=== PATIENT | male | born 1945 | race Caucasian/White ===

== ENCOUNTER 2019-03-26 11:00 | Outpatient (RCR) | payer OTHER, MEDICARE, SELFPAY | END 2019-04-06 23:59 | disposition home or self-care (01) | LOC: MPT 11:00 | PROVIDERS: Referring Provider Orthopaedic Surgery Pediatric Orthopaedic Surgery; Visit Provider Orthopaedic Surgery Pediatric Orthopaedic Surgery | DX: M17.12 Unilateral primary osteoarthritis, left knee (principal) | CPT/HCPCS: 97110; 97116; 97140; 97161 ==

== ENCOUNTER 2019-04-09 06:00 | Outpatient (RCR) | payer OTHER, SELFPAY | END 2019-05-05 23:59 | disposition home or self-care (01) | LOC: MPT 06:00 | PROVIDERS: Referring Provider Orthopaedic Surgery Pediatric Orthopaedic Surgery; Visit Provider Orthopaedic Surgery Pediatric Orthopaedic Surgery | DX: M17.12 Unilateral primary osteoarthritis, left knee (principal) | CPT/HCPCS: 97110; 97116; 97140 ==

== ENCOUNTER 2019-09-11 06:00 | Outpatient (RCR) | payer OTHER, SELFPAY | END 2019-10-05 23:59 | disposition home or self-care (01) | LOC: MPT 06:00 | PROVIDERS: Referring Provider Orthopaedic Surgery Pediatric Orthopaedic Surgery; Visit Provider Orthopaedic Surgery Pediatric Orthopaedic Surgery | DX: M17.11 Unilateral primary osteoarthritis, right knee (principal) | CPT/HCPCS: 97110; 97140; 97161; G0283 ==

== ENCOUNTER 2020-03-25 09:12 | Outpatient (CLI) | payer OTHER, SELFPAY ==
--- NOTE | 2020-03-25 09:26 | CT_ITS ---
WS: [id number] CT NECK TECHNIQUE: Contrast-enhanced CT of the neck with coronal and sagittal reformatted images. CLINICAL INFORMATION: PRIMARY TONSIL SQUAMOUS CELL CANCER FOLLOW-UP COMPARISON: CT 4 DLP: 2954.[address] scans at [facility] use at least one of these dose optimization techniques: automat ed exposure control; mA and/or kV adjustment per patient size (includes targeted exams where dose is matched to clinical indication); or iterative reconstruction. FINDINGS: Prior postoperative changes modified left radical neck dissection. Parotid glands are normal. Normal submandibular glands. Tongue base appears normal. Normal parapharyngeal fat. Normal posterior nasopha rynx. No evidence of supraglottic or glottic mass. No cervical lymphadenopathy. Thyroid gland is norm al. Chronic emphysematous changes in the lung apices. Partially visualized intracranial contents are unre markable. Paranasal sinuses and mastoid air cells well aerated. Moderate spondylitic changes cervical spine. Slight anterolisthesis C4 on C5. CT/CT neck w con* [id number] IMPRESSION: 1. Normal salivary glands. 2. No cervical lymphadenopathy. 3. No evidence of supraglottic or glottic mass. 4. Normal posterior nasopharynx and parapharyngeal fat. 5. Normal mastoid air cells and paranasal sinuses.
[2020-03-25] MEDS: iohexol 300 mg/mL 100 mL Btl IV (10:07)
== END 2020-03-25 09:13 | disposition home or self-care (01) ==
LOC: RADWPI 09:16
PROVIDERS: PCP Family Medicine; Visit Provider Family Medicine
DX: C09.1 Malignant neoplasm of tonsillar pillar (anterior) (posterior) (principal)
CPT/HCPCS: 70491; Q9967

== ENCOUNTER 2020-04-08 10:32 | Emergency (ER) | payer OTHER, SELFPAY ==
--- NOTE | 2020-04-08 10:41 | XRR_ITS ---
PROCEDURE INFORMATION: Exam: XR Chest, 1 View Exam date and time: 04/08/2020 10:42 AM Age: 75 years old Clinical indication: Cough and dyspnea and shortness of breath; Type not specified; Patient HX: Chest pain and shortness of breath for 6 months to a year, becoming worse over the last weekend; Additional info: Dyspnea/cough TECHNIQUE: Imaging protocol: XR of the chest Views: 1 view. COMPARISON: No relevant prior studies available. FINDINGS: Lungs: The lungs are somewhat hyperinflated with increased interstitial markings, likely representing COPD. There is reticular opacities at the lung bases, suggestive of fibrosis. Pneumonia should be excluded clinically. Pleural spaces: Unremarkable. No pleural effusion. No pneumothorax. Heart/Mediastinum: Unremarkable. No cardiomegaly. Bones/joints: Degenerative changes of the spine seen. Other findings: . XR/XR chest 1V portable [id number] IMPRESSION: Bilateral lower lobe reticular opacities, which may represent chronic changes or pneumonia in the adequate clinical setting. Clinical correlation is recommended.
[2020-04-08 10:59] VITALS: BP 137/78; PULSE 66; RESP 14; TEMP 36.3; O2SAT 96; BMI 27.9
--- NOTE | 2020-04-08 11:06 | ECG_ITS ---
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1945 Requested By: Herber Sampson Order Number: [id number] Reading MD: NICOLA CRUZ Measurements Intervals [place] Rate: 66 P: 60 OR: 167 QRS: -6 QRSD: 90 T: 74 QT: 409 QTc: 430 Interpretive Statements SINUS RHYTHM WITH SINUS ARRHYTHMIA MINIMAL VOLTAGE CRITERIA FOR LVH, CONSIDER NORMAL VARIANT [MEETS CRITERIA IN ONE OF: R(aVL), S(V1), R(V5), R(V5/V6)+S(V1)] SEPTAL MYOCARDIAL INFARCTION , OF INDETERMINATE AGE [40+ ms Q WAVE IN V1/V2] No previous ECG available for comparison Electronically Signed On 04-08-2020 18:02:22 UPHOLSTERY DEPARTMENT SUPERVISOR by NICOLA CRZU [id number]
[2020-04-08 11:10] VITALS: PULSE 71; RESP 18; O2SAT 96
[2020-04-08 11:37] LABS: Basophils % 0.5 %; Eosinophils # 0.3 10^3/uL (0.0-0.8); Eosinophils % 4.7 %; Hematocrit 38.9 % (42.0-52.0); Hemoglobin 12.7 g/dL (11.7-16.6); Lymphocytes # 0.9 10^3/uL (0.8-4.8); Lymphocytes % 15.7 %; Mean Corpuscular HGB Conc 32.6 g/dL (30.0-36.0); Mean Corpuscular Hemoglobin 32.6 pg (28.0-34.0); Mean Corpuscular Volume 99.7 fL (80-94); Mean Platelet Volume 9.3 fL (7.4-10.4); Monocytes # 0.4 10^3/uL (0.2-0.9); Monocytes % 6.7 %; Neutrophils # 3.96 10^3/uL (1.8-7.7); Neutrophils % 72.2 %; Nucleated Red Blood Cells % 0 %; Platelet Count 240 10^3/cmm (130-400); Red Cell Distribution Width 12.2 % (12.1-15.1); White Blood Count 5.5 10^3/uL (4.0-10.0)
--- NOTE | 2020-04-08 11:39 | PC.PHAR ---
pt states he takes care of his own medications-pt states he is unsure which medications he has taken today-
[2020-04-08 11:57] LABS: Alanine Aminotransferase 11 U/L (0-41); Albumin Level 4.2 g/dL (3.5-5.2); Alkaline Phosphatase 118 IU/L (40-130); Anion Gap 14.5 (5-19); Aspartate Amino Transferase 13 U/L (0-40); Blood Urea Nitrogen 15 mg/dL (8-23); Calcium 9.8 mg/dL (8.5-10.5); Carbon Dioxide 29 mmol/L (22-29); Chloride 98 mmol/L (98-107); Globulin 2.6 g/dL (1.3-4.6); Glucose 118 mg/dL (65-115); Osmolality Calculated 286 mOsm/kg (285-295); Potassium 4.5 mmol/L (3.5-5.1); Sodium 137 mmol/L (136-145); Total Bilirubin 0.8 mg/dL (0.15-1.2); Total Protein 6.8 g/dL (6.6-8.7)
[2020-04-08 12:00] LABS: Troponin(5th) Baseline 65 ng/L (0-15)
--- NOTE | 2020-04-08 12:01 | W.ED.SOB ---
HPI - SOB/Dyspnea General: Chief Complaint: Shortness of Breath/Dyspnea Stated Complaint: SOB x 1 year Time Seen by Provider: 04/08/20 10:41 History of Present Illness: HPI Narrative: 75-year-old male presents to the emergency room with complaint of shortness of breath with activity. This been going on for a year he states with any exertion he'll get short of breath sometimes he will get some chest pain with it usually resolves within 15 to 20 minutes of onset with rest. He has not had any radiation of the pain to the neck back or arm. He has noted is becoming more frequent and a little more intense as well. He has an upcoming stress test scheduled. [facility] and they referred him to the emergency room at the time he is seen he is not having any symptoms. MD elicited complaint: shortness of breath and chest pain Pertinent past history: COPD, diabetes and other (Hypertension hyperlipidemia) Onset (ago): year(s) (1) Context: occurred during exertion Timing: intermittent and progressively worsening Severity: mild Exacerbating factors: exertion Relieving factors: rest Known history of: COPD, diabetes and other (Hypertension hyperlipidemia) Associated symptoms: Reports chest pain and cough; Deny abdominal pain, chest congestion, diaphoresis, dizziness, extremity pain, fever(s), hemoptysis, lightheadedness, myalgias, nausea, orthopnea, palpitations, paresthesias, polydipsia, polyuria, rash, sense of impending doom, syncope or vomiting Treatment prior to arrival: none Review of Systems Const: Denies: fever(s) or diaphoresis ENMT: Denies: throat pain, ear or mastoid pain, nasal discharge or nasal congestion Card: Reports: chest pain; Denies: palpitations, lightheadedness, syncope or orthopnea Resp: Denies: hemoptysis or chest congestion GI: Denies: abdominal pain, nausea or vomiting : Denies: flank pain, dysuria, urinary frequency or urinary urgency Musc: Denies: extremity pain Skin/Breast: Denies: rash or pruritus Neuro: Denies: dizziness Endo: Denies: polyuria or polydipsia Physical Exam Const: COMMON NORMALS: no acute distress GENERAL APPEARANCE: cooperative and comfortable ORIENTATION/CONSCIOUSNESS: Yes awake, Yes oriented to person, Yes oriented to place and Yes oriented to time HENMT: COMMON NORMALS: normocephalic, atraumatic and hearing grossly normal bilaterally HEAD & SCALP: normocephalic and atraumatic Neck/C-Spine: COMMON NORMALS: no JVD Resp: COMMON NORMALS: normal respiratory effort, No retractions, No use of accessory muscles and clear to auscultation bilaterally AUSCULTATION: clear to auscultation bilaterally Cardio: COMMON NORMALS: no JVD, regular rate, regular rhythm and No murmurs present (Cardio) RATE: regular rate RHYTHM: regular rhythm GI: COMMON NORMALS: Soft to palpation and No hepatosplenomegaly present AUSCULTATION: Yes normoactive bowel sounds PALPATION: Yes Soft to palpation, No Tenderness to palpation present (GI), No Guarding due to palpation present (GI) and Yes No hepatosplenomegaly present Extremity: COMMON NORMALS: normal to inspection, capillary refill normal, no clubbing, cyanosis or edema, no calf tenderness and no pedal edema Neuro: SENSORIUM/ORIENTATION: Yes oriented to person, Yes oriented to place and Yes oriented to time Skin: COMMON NORMALS: no rashes or lesions noted GENERAL SKIN EXAM: no rashes or lesions noted Course Vital Signs: Vital signs: Vital Signs Temperature 97.4 F L 04/08/20 10:59 Pulse Rate 84 04/08/20 15:02 Respiratory Rate 18 04/08/20 15:02 Blood Pressure 137/78 04/08/20 10:59 Pulse Oximetry 98 04/08/20 15:02 MDM - SOB/Dyspnea MDM Narrative: Medical decision making narrative: We will decrease his lisinopril to 20 mg daily absent the hydrochlorothiazide. Add Imdur 30 mg once daily start baby aspirin daily and continue his other medications. Can use sublingual nitro as needed if has worsening chest pain not relieved by nitro return to the emergency room. Otherwise keep appointment for cardiac stress testing as scheduled. Lab Data: Labs: Lab Results 04/08/20 04/08/20 04/08/20 Range/Units 11:29 11:29 11:29 WBC 5.5 (4.0-10.0) 10^3/ uL RBC 3.90 L (4.1-5.3) 10^6/u L Hgb 12.7 (11.7-16.6) g/dL Hct 38.9 L (42.0-52.0) % MCV 99.7 H (80-94) fL MCH 32.6 (28.0-34.0) pg MCHC 32.6 (30.0-36.0) g/dL RDW 12.2 (12.1-15.1) % Plt Count 240 (130-400) 10^3/c mm MPV 9.3 (7.4-10.4) fL Neut % (Auto) 72.2 % Lymph % (Auto) 15.7 % [place] % (Auto) 6.7 % Eos % (Auto) 4.7 % Baso % (Auto) 0.5 % Neut # (Auto) 3.96 (1.8-7.7) 10^3/u L Lymph # (Auto) 0.9 (0.8-4.8) 10^3/u L [place] # (Auto) 0.4 (0.2-0.9) 10^3/u L Eos # (Auto) 0.3 (0.0-0.8) 10^3/u L Baso # (Auto) 0.0 (0.0-0.1) 10^3/u L Nucleated RBC % (a uto) 0 % Nucleated RBCs # 0.0 /100WBC Sodium 137 (136-145) mmol/L Potassium 4.5 (3.5-5.1) mmol/L Chloride 98 (98-107) mmol/L Carbon Dioxide 29 (22-29) mmol/L Anion Gap 14.5 (5-19) BUN 15 (8-23) mg/dL Creatinine 0.9 (0.7-1.2) mg/dL GFR Calculation Not Reportable Glucose 118 H (65-115) mg/dL Calculated Osmolal ity 286 (285-295) mOsm/k g Calcium 9.8 (8.5-10.5) mg/dL Total Bilirubin 0.8 (0.15-1.2) mg/dL AST 13 (0-40) U/L ALT 11 (0-41) U/L Alkaline Phosphata se 118 (40-130) IU/L Troponin T Baselin e 65 H (0-15) ng/L Troponin T 120 Min [place] (0-15) ng/L Delta Troponin T (0-10) ABS# Total Protein 6.8 (6.6-8.7) g/dL Albumin 4.2 (3.5-5.2) g/dL Globulin 2.6 (1.3-4.6) g/dL 04/08/20 Range/Units 13:35 WBC (4.0-10.0) 10^3/ uL RBC (4.1-5.3) 10^6/u L Hgb (11.7-16.6) g/dL Hct (42.0-52.0) % MCV (80-94) fL MCH (28.0-34.0) pg MCHC (30.0-36.0) g/dL RDW (12.1-15.1) % Plt Count (130-400) 10^3/c mm MPV (7.4-10.4) fL Neut % (Auto) % Lymph % (Auto) % [place] % (Auto) % Eos % (Auto) % Baso % (Auto) % Neut # (Auto) (1.8-7.7) 10^3/u L Lymph # (Auto) (0.8-4.8) 10^3/u L [place] # (Auto) (0.2-0.9) 10^3/u L Eos # (Auto) (0.0-0.8) 10^3/u L Baso # (Auto) (0.0-0.1) 10^3/u L Nucleated RBC % (a uto) % Nucleated RBCs # /100WBC Sodium (136-145) mmol/L Potassium (3.5-5.1) mmol/L Chloride (98-107) mmol/L Carbon Dioxide (22-29) mmol/L Anion Gap (5-19) BUN (8-23) mg/dL Creatinine (0.7-1.2) mg/dL GFR Calculation Glucose (65-115) mg/dL Calculated Osmolal ity (285-295) mOsm/k g Calcium (8.5-10.5) mg/dL Total Bilirubin (0.15-1.2) mg/dL AST (0-40) U/L ALT (0-41) U/L Alkaline Phosphata se (40-130) IU/L Troponin T Baselin e (0-15) ng/L Troponin T 120 Min [place] 65.11 H (0-15) ng/L Delta Troponin T 0.11 (0-10) ABS# Total Protein (6.6-8.7) g/dL Albumin (3.5-5.2) g/dL Globulin (1.3-4.6) g/dL Discharge Plan Discharge Patient Disposition: Home Clinical Impression: Atypical chest pain Condition: Stable Prescriptions: New isosorbide mononitrate 30 mg tablet extended release 24 hr 30 mg PO DAILY Qty: 30 RF: 0 nitroglycerin 0.4 mg tablet, sublingual 0.4 mg sublingual Q5M PRN (Reason: chest pain) Qty: 30 RF: 0 lisinopril 20 mg tablet 20 mg PO DAILY Qty: 30 RF: 0 aspirin 81 mg tablet,delayed release (DR/EC) 81 mg PO DAILY Qty: 30 RF: 0 Discontinued lisinopril-hydrochlorothiazide 20-25 mg tablet 1 tab PO QAM RF: 0 No Action ipratropium-albuterol 20-100 mcg/actuation mist 1 puff inhalation QID RF: 0 amlodipine 5 mg tablet 5 mg PO DAILY RF: 0 atorvastatin 40 mg tablet 40 mg PO QPM RF: 0 budesonide-formoterol 160-4.5 mcg/actuation HFA aerosol inhaler 2 puff inhalation BID RF: 0 duloxetine 60 mg capsule,delayed release(DR/EC) 60 mg PO DAILY RF: 0 gabapentin 600 mg tablet 600 mg PO BID RF: 0 glipizide 5 mg tablet 5 mg PO BID RF: 0 lidocaine 5 % ointment 1 applic topical BID PRN (Reason: unknown) RF: 0 metformin 1,000 mg tablet 1,000 mg PO BID RF: 0 sertraline 100 mg tablet 100 mg PO QAM RF: 0 Nightime Pain Relief And Sleep 2 tab PO BEDTIME RF: 0 Discharge Orders: Discharge ED (Routine); Ordered 04/08/20 Ordered By: Herber Lino Referrals: Harika Valente MD [Primary Care Provider] - Discharge Diet: Usual diet Discharge Activity: Limit activity as instructed Activity Restrictions/Additional Instructions: Stop lisinopril hydrochlorothiazide start plain lisinopril, add Imdur 30 mg daily. Sublingual nitro as needed. Recommend you start baby aspirin 81 mg daily as well. Sublingual nitro if you have chest pain that does not resolve. Keep appointment with stress test as scheduled. Return if you have chest pain that is not relieved by nitroglycerin pills Coding Level of Care Code ED Truck Trailer Mechanic for Mariaelena Fwnaz Exam Comprehensive
--- NOTE | 2020-04-08 13:06 | ECG_ITS ---
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1945 Requested By: Herber Sampson Order Number: [id number] Reading MD: NICOLA CRUZ Measurements Intervals [place] Rate: 79 P: 59 SD: 169 QRS: -21 QRSD: 93 T: 72 QT: 423 QTc: 487 Interpretive Statements SINUS RHYTHM WITH OCCASIONAL VENTRICULAR PREMATURE COMPLEXES POSSIBLE LEFT ATRIAL ENLARGEMENT [-0.1mV P WAVE IN V1/V2] POSSIBLE LEFT VENTRICULAR HYPERTROPHY [VOLTAGE CRITERIA PLUS LAE OR QRS WIDENING] POSSIBLE SEPTAL MYOCARDIAL INFARCTION , OF INDETERMINATE AGE [30 ms Q WAVE IN V1/V2] Compared to ECG 04/08/2020 11:19:27 Ventricular premature complex(es) now present Sinus arrhythmia no longer present Myocardial infarct finding still present Electronically Signed On 04-08-2020 18:03:43 CRM MARKETING MANAGER by NICOLA CRUZ [id number]
[2020-04-08 14:19] LABS: Troponin 5 2HR 65.11 ng/L (0-15); Troponin 5 2HR Delta 0.11 ABS# (0-10)
[2020-04-08 15:02] VITALS: PULSE 84; RESP 18; O2SAT 98
== END 2020-04-08 15:03 | disposition home or self-care (01) ==
PROVIDERS: Emergency Provider Family Medicine; PCP Family Medicine
DX: R07.89 Other chest pain (principal); Z79.84 Long term (current) use of oral hypoglycemic drugs
CPT/HCPCS: 12345; 36415; 71045; 80053; 84484; 85025; 93005; 99283

== ENCOUNTER 2020-04-25 09:12 | Outpatient (CLI) | payer OTHER, SELFPAY ==
[2020-04-25 09:35] VITALS: BMI 27.2
--- NOTE | 2020-04-25 09:38 | ECG_ITS ---
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 Interpretive Statements NAME OF STUDY: LEXISCAN SESTAMIBI STRESS TEST INDICATION: Chest Pain; Shortness of Breath PROCEDURE: At the baseline, the EKG revealed normal sinus rhythm with a poor R wave progression. Possible old anteroseptal myocardial infarction. The baseline blood pressure was 147/105 mm Hg with a heart rate of 66 beats/min. Lexiscan was infused over a period of 20 seconds. A total of 0.4 milligrams of Lexiscan was infused. The stress phase was continued for a total of 5 minutes. Heart rate at the end of the stress phase was 66 with a blood pressure 151/82. The EKG at the peak infusion revealed no significant changes frequent PVCs were noted in the form of bigeminy, towards the end of the infusion. Sestamibi was injected 20 seconds after the Lexiscan infusion. Blood pressure at the end of the recovery phase was 149/81 with a heart rate of 65 per minute. CONCLUSION: 1. No significant EKG changes with the LexiScan infusion 2. No LexiScan induced chest pain or cardiac arrhythmia 3. Normal blood pressure and heart rate response 4. Sestamibi/sestamibi perfusion scan pending; see separate report. Electronically Signed On 04-25-2020 16:19:25 REAL ESTATE INVESTOR by Shelley Cormier M.D. [id number]
--- NOTE | 2020-04-25 09:38 | NMCV_ITS ---
[facility] [place] perf SPECT r/s* [id number] Nico Saenz Age: 75 Gender: M : 1945 Exam Date: 04/25/2020 09:38 Ordering Phys: Shelley Cormier MD ([email or web address]) Technologist: SHERINE Kirkpatrick Exam Location: [facility] Indications: CHEST PAIN STRESS TEST [facility] IMAGE PROTOCOL Rest/Stress 1 Lexiscan Day Radiopharmaceutical Dose (mCi) Administration Site Administered by Rest: Tc-99m 10.8 IV SHERINE Puente Sestamibi Stress:Tc-99m 32.6 IV SHERINE Puente Sestamibi Rest: 25-Apr-2020 60 Discovery 630 Stress: 25-Apr-2020 30 Discovery 630 0.4mg Lexiscan. Images obtained in supine and prone position. SPECT RESULTS Technical Quality: Excellent Raw Data Analysis: Normal Image Corrections: No attenuation or motion correction applied Summed Stress Score: 5 Summed Rest Score: 3 Summed Difference Score: 2 PERFUSION FINDINGS Small to moderate area of decreased tracer uptake in the basal, mid and apical inferior wall region, with the central area of reversibility in the apical inferior region. FUNCTIONAL RESULTS (calculated via Gated SPECT) Stress Image LV EF (%): 25 Stress EDV (mL):219 TID: 1.09 Stress ESV (mL):164 FUNCTIONAL FINDINGS: Dilated left ventricle with a severe diffuse hypokinesia. IMPRESSIONS 1. Bicarb perfusion may revealing a small to moderate area of persistent decreased uptake in the inferior wall region, with a subtle area of reversibility, suggestive of myocardial scarring with a subtle area of ama- infarction ischemia in the distribution of the right coronary artery. 2. Diminished LV ejection fraction 25%. 3. LV wall motion analysis revealing severe diffuse hypokinesia of the left ventricle. 4. Dilated LV cavity with an end-systolic volume of 164 mL No similar previous studies are available for comparison Dr Shelley Cormier MD [facility] (Electronically Signed) Final Date: 25 April 2020 14:08 S
--- NOTE | 2020-04-25 11:55 | SUR.PREOP ---
Patient reports no pain or discomfort prior to the start of the procedure.
[2020-04-25] MEDS: regadenoson 0.4 Mg/5 ml Syringe IVP (12:00)
[2020-04-25 12:35] VITALS: BP 149/81; PULSE 68
== END 2020-04-25 09:13 | disposition home or self-care (01) ==
LOC: CDL 09:14
PROVIDERS: PCP Family Medicine; Visit Provider Internal Medicine Cardiovascular Disease
DX: R07.9 Chest pain, unspecified (principal); R06.02 Shortness of breath
CPT/HCPCS: 78452; 93017; A9500; J2785

== ENCOUNTER 2020-04-29 12:12 | Outpatient (CLI) | payer OTHER, SELFPAY ==
--- NOTE | 2020-04-29 12:19 | USCV_ITS ---
Nico Saenz Age: 75 Gender: M : 1945 Exam Date: 04/29/2020 12:30 Ordering Phys: Shelley Cormier MD ([email or web address]) Technologist: Evie Jaime Exam Location: [facility] [place] Indication: PRE OP FOR CATH BP: 128 / 72 HR: 80 Rhythm: Sinus Technical Quality: Adequate MEASUREMENTS (Male / Female) Normal Values 2D ECHO LV Diastolic Diameter PLAX 4.3 cm 4.2 - 5.9 / 3.9 - 5.3 cm LV Systolic Diameter PLAX 3.5 cm IVS Diastolic Thickness 1.1 cm 0.6 - 1.0 / 0.6 - 0.9 cm IVS Systolic Thickness 1.5 cm LVPW Diastolic Thickness 1.4 cm 0.6 - 1.0 / 0.6 - 0.9 cm LVPW Systolic Thickness 2.2 cm LVOT Diameter 2.0 cm LV Ejection Fraction 2D Teich 41.4 % LV Ejection Fraction MOD 2C 37.1 % LV Ejection Fraction 2C AL 39.4 % LA Diameter 4.1 cm LA Width 3.3 cm LA Height 5.1 cm RA Width 3.9 cm RA Height 4.8 cm Aorta at Sinotubular Diameter 3.2 cm M-MODE LV Diastolic Diameter MM 5.5 cm 4.2 - 5.9 / 3.9 - 5.3 cm LV Systolic Diameter MM 4.4 cm LV Ejection Fraction MM Teich 39.2 % IVS Diastolic Thickness MM 0.8 cm 0.6 - 1.0 / 0.6 - 0.9 cm IVS Systolic Thickness MM 1.4 cm LVPW Diastolic Thickness MM 1.7 cm 0.6 - 1.0 / 0.6 - 0.9 cm LVPW Systolic Thickness MM 1.4 cm RV Diastolic Diameter MM 1.7 cm Aortic Annulus Diameter 3.0 cm LA Ao Ratio MM 1.4 MV E Point Septal Separation 0.9 cm DOPPLER AV Peak Velocity 121.0 cm/s LVOT Peak Velocity 66.0 cm/s AV Area Cont Eq vti 1.7 cm squared AV Area Cont Eq pk 1.8 cm squared MV Area PHT 3.3 cm squared Mitral E to A Ratio 0.7 MV E' Velocity 30.0 cm/s Mitral E to MV E' Ratio 7.9 Mitral E to LV E' Lateral Ratio 7.3 Mitral E to LV E' Septal Ratio 8.7 TR Peak Velocity 113.5 cm/s TR Peak Gradient 5.2 mmHg TR Mean Velocity 81.9 cm/s TR Mean Gradient 3.2 mmHg TR Velocity Time Integral 26.7 cm TV Peak E Velocity 47.0 cm/s PV Peak Velocity 85.7 cm/s RV Acceleration Time 0.2 s RV Ejection Time 0.3 s RV AcT/ET 0.5 FINDINGS Left Ventricle Normal LV size with diminished ejection fraction of 38%. Diffuse hypokinesis of the left ventricle.Grade I/IV diastolic dysfunction (abnormal relaxation filling pattern), normal to mildly elevated filling pressures. Right Ventricle Possibly of normal size and ejection fraction Right Atrium Mildly increased right atrial size. Left Atrium Mildly increased left atrial size. Mitral Valve Thickened mitral valve. Aortic Valve Thickened aortic valve. Tricuspid Valve Trace tricuspid valve regurgitation. Pulmonic Valve Pulmonic valve not well visualized. Pericardium No pericardial effusion. Aorta Normal aortic annulus size. CONCLUSIONS Normal LV size with diminished ejection fraction of 38%. Diffuse hypokinesis of the left ventricle.Grade I/IV diastolic dysfunction (abnormal relaxation filling pattern), normal to mildly elevated filling pressures. Mild biatrial enlargement Thickened aortic and mitral valves. Trace tricuspid valve regurgitation. There is no pericardial effusion. There are no intracardiac masses. No previous study is available for comparison. Dr Shelley Cormier MD [facility] (Electronically Signed) Final Date: 29 April 2020 19:00 S
== END 2020-04-29 12:13 | disposition home or self-care (01) ==
LOC: RAD 12:13
PROVIDERS: PCP Family Medicine; Visit Provider Internal Medicine Cardiovascular Disease
DX: R07.89 Other chest pain (principal); R01.1 Cardiac murmur, unspecified; I08.3 Combined rheumatic disorders of mitral, aortic and tricuspid valves
CPT/HCPCS: 93306

== ENCOUNTER 2020-05-02 10:18 | Outpatient (CLI) | payer OTHER, SELFPAY ==
[2020-05-02 10:48] LABS: Basophils # 0.1 10^3/uL (0.0-0.1); Basophils % 0.9 %; Eosinophils # 0.3 10^3/uL (0.0-0.8); Hematocrit 39.2 % (42.0-52.0); Hemoglobin 12.8 g/dL (11.7-16.6); Lymphocytes % 17.7 %; Mean Corpuscular HGB Conc 32.7 g/dL (30.0-36.0); Mean Corpuscular Hemoglobin 32.7 pg (28.0-34.0); Mean Platelet Volume 9.3 fL (7.4-10.4); Monocytes # 0.4 10^3/uL (0.2-0.9); Monocytes % 7.4 %; Neutrophils # 3.75 10^3/uL (1.8-7.7); Neutrophils % 67.8 %; Nucleated Red Blood Cells % 0 %; Platelet Count 229 10^3/cmm (130-400); Red Blood Count 3.92 10^6/uL (4.1-5.3); Red Cell Distribution Width 12.6 % (12.1-15.1); White Blood Count 5.5 10^3/uL (4.0-10.0)
[2020-05-02 11:02] LABS: INR 0.91 (0.8-1.2)
[2020-05-02 11:11] LABS: Anion Gap 11.5 (5-19); Blood Urea Nitrogen 12 mg/dL (8-23); Calcium 9.6 mg/dL (8.5-10.5); Carbon Dioxide 30 mmol/L (22-29); Chloride 102 mmol/L (98-107); Glucose 96 mg/dL (65-115); Osmolality Calculated 288 mOsm/kg (285-295); Potassium 4.5 mmol/L (3.5-5.1); Sodium 139 mmol/L (136-145)
== END 2020-05-02 10:19 | disposition home or self-care (01) ==
PROVIDERS: Internal Medicine Cardiovascular Disease; PCP Family Medicine; Visit Provider Internal Medicine
DX: R06.02 Shortness of breath (principal); E11.9 Type 2 diabetes mellitus without complications; R94.39 Abnormal result of other cardiovascular function study
CPT/HCPCS: 36415; 80048; 85025; 85610; 86850; 86900; 87635

== ENCOUNTER 2020-05-09 13:23 | Observation (INO) | payer OTHER, MEDICARE, SELFPAY ==
[2020-05-08 14:59] VITALS: BMI 26.9
[2020-05-09] VITALS (31 sets, daily range): BP systolic 95–175; BP diastolic 58–106; PULSE 60–93; RESP 10–26; TEMP 36.3–36.9; O2SAT 95–98
--- NOTE | 2020-05-09 11:21 | XACV_ITS ---
Ht: 178 cm Wt: 85 kg BSA: 2.07 m2 Gender: Male : 1945 Exam Priority: Routine Procedure(s): Procedure Description: Diagnostic procedure Procedure Description: PCI procedure Procedure Description: Left Heart Catheterization Procedure Description: Left ventriculography Procedure Description: Drug Eluting Coronary Stent Procedure Description: PTCA Diagnostic Cath Status: Elective Diagnostic Findings * The left main is a medium to large caliber vessel with no significant obstructive lesions. * The left anterior descending artery is a medium to large caliber vessel which appears to wrap around the LV apex. The proximal to mid segment of the LAD was found to have 50 to 90% irregular, ulcerated lesion. The distal LAD he was found to have no significant stenotic lesion. The first diagonal branch is a relatively small caliber vessel. Mild disease was noted in the ostium of this artery. * The left circumflex artery is a medium caliber vessel which appears to bifurcate to the mid segment. No significant stenotic lesions were noted. * The right coronary artery is a nondominant, relatively small caliber vessel. Minimal intimal irregularities are noted. No significant stenotic lesions. PCI Status: Urgent PCI Indication: NSTE - ACS Interventional Findings * Proximal Left Anterior Descending Coronary Artery: treated with MDT R MITESH 4.0X22 LEA and MDT JOANN EUPHORA RX [id number] BALLOON. Conclusions 1. 75-year-old white male with history of hypertension, type 2 diabetes, dyslipidemia, presented with complaints of chest pain and shortness of breath. He had an abnormal myocardial perfusion imaging revealing areas of fixed and reversible defects. LV action fraction was around 37 percent by echocardiogram. In order to further evaluate his coronary status, a cardiac catheterization was recommended. Patient underwent left heart catheterization with left and right coronary angiogram and LV angiogram today. The findings are as follows. 2. There is a high-grade irregular ulcerated lesion involving the proximal to mid LAD. The LAD was found to be relatively large caliber vessel, wrapping around the LV apex. Minimal intimal irregularities were noted in the left circumflex artery and the right coronary artery. Right coronary artery appears to be a small to medium caliber nondominant vessel. LV ejection fraction was around 36% with an LVEDP of 15 mmHg. 3. Based on the above findings, it was thought be appropriate to consider PCI of the LAD lesion. I reviewed and discussed the cardiac catheterization data with Dr. Duran. Dr. Duran took over further management of this patient at this point. 4. Proximal Left Anterior Descending Coronary Artery was treated with Drug Eluting Stent and Balloon. Recommendations * Continue current medical management and risk factor modification. * Return to inpatient for close monitoring and routine cath care. * Risk factor modification for secondary prevention. * Statin and aspirin 81mg lifelong, if tolerated. * Continue Plavix 75mg p.o. daily for at least one year. We will assess at the end of one year to determine continuation or not. Diagnostic RX Recommendation: PCI w/o planned CABG Ventriculography Ejection Fraction: 36.0 % LV EDP: 15 mmHg Left Ventriculography Findings: * The LV gram was performed the CHEEMA projection. The LV cavity appears to be mildly dilated. There is severe diffuse hypokinesia of the anterior and apical segment. Overall ejection fraction was around 36%. No filling defects were noted. No severe mitral valve prolapse of mitral regurgitation. Pressures Phase:Rest AO : 143 / 75 ( 103 ) @ 6:36:00 AM 146 / 56 ( 95 ) @ 6:36:00 AM LV : 136 / -1 / @ 6:35:00 AM 135 / -1 / @ 6:35:00 AM 136 / 0 / @ 6:36:00 AM 136 / 0 / @ 6:36:00 AM 136 / 0 / @ 6:36:00 AM Valves Phase:DefaultPhase AV : 0.0 @ 1:08:40 PM 0.0 @ 1:08:40 PM AV Mean Gradient: 0.0 @ 1:08:40 PM Clinical Evaluation EBL: 5mL-10mL Procedural Details Procedure Consent Obtained. Admit Source: Out Patient. Pre-Procedure Time Out. Identified patient by full name and date of as verbalized by the patient/guarantor. Does the consent match the physician's order: Yes. Accurate & Complete Informed Consent: Yes. Inpatient/Outpatient History & Physical on Chart: Yes. If H&P is completed, is and addenduem needed: N/A; If yes, is the addendum complete: N/A. Visualize and Verify Site with Patient/Guarantor: N/A. Relevant Radiology Images available: N/A. Pre-op teaching completed and patient verbalized understanding. The risks, benefits, and alternatives of sedation and/or procedure were discussed by physician. The patient agrees to continue. Procedure started. PERRLA. Strong, equal hand engine pilot bilaterally. Lungs clear x 5 lobes. IV Site on Arrival: 18 gauge in the right anticubital. Pre Procedural Pulses: bilateral dorsalis pedis was 3+. Pre Procedural Pulses: bilateral posterior tibial was 3+. Pre Procedural Pulses: bilateral radial was 3+. Oxygen started at 2liters/min via nasal canula. bilateral groins was prepped with chloroprep then draped in the usual sterile fashion. right radial was prepped with chloroprep then draped in the usual sterile fashion. Baseline sample Acquired. HR: 82 BPM. Physician notified. Physician arrived. Lidocaine 1% infiltrated to the right radial. Arterial access obtained. A 5 moldovan Monty catheter in over wire. Multiple views taken of left coronary artery. Catheter redirected to the RCA. Catheter removed over the exchange wire. A 5 moldovan JR4 catheter in over wire. Multiple views taken of right coronary artery. Dr. Duran notified. Catheter out. A 5 moldovan Angled Pig catheter in over wire. EDP Sample taken: LV 136/-1,16; HR: 74 BPM; SpO2: 97%. Aortogram performed in CHEEMA @ 10 mL/second for a total of 30 mL. EDP Sample taken: LV 136/0,17; HR: 73 BPM; SpO2: 97%. Pullback taken: LV 136/-1,16; AO 143/75(103); Mean: 0mmHg, Peak to Peak: 0mmHg, SEP: 7sec/min; HR: 74 BPM; SpO2: 96%. Catheter out. AP pads applied to patient. [facility] Clinical Fraility Score: 4: Vulnerable. 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 Chest Pain Symptom Assessment: Atypical chest pain. Dr. Duran arrived. Cardiovascular Instability: No,. Dr. Duran scrubbed in to perform intervention. 6 moldovan XB 3.5 guide catheter was inserted over the wire. [place] guidewire was advanced through the guide catheter to lesion in the prox LAD. Inflation Number : 1 A MDT R MITESH 4.0X22 LEA -Lot Number# [id number] exp date: 03-25-2021 was prepped and advanced across the Prox LAD. The stent was deployed at 18 FELY for 0:24 seconds. Stent balloon out over wire. results checked. Inflation number : 2 A MDT NC EUPHORA RX [id number] BALLOON was prepped and advanced across the Prox LAD , then inflated to 20 FELY for 0:18 seconds. Inflation number: 3 The MDT NC EUPHORA RX [id number] BALLOON was reinflated across the Prox LAD, to 24 FELY for 0:20 seconds. Balloon and wire out. results checked. TR band placed. Hemostasis obtained. Post Procedure: Pulses reassessed and unchanged. PERRLA. Strong, equal hand engine pilot bilaterally. No VTE prophylaxis required. A TR Band was successful obtaining hemostatsis at the Right Radial artery insertion site. Medication's Wasted: Heparin = 1000 units. Medication's Wasted: Lidocaine 1% = 18 mL. Medication's Wasted: Nitro = 49.8 mg. Total IV fluids: 200 mL. Contrast type used: Omnipaque 300 mgI/mL, 500 mL bottle. Contrast Material : Omnipaque 236 ml. PCI Indication: abnormal stress test. Post-op diagnosis: abnormal stress test. Complications: none. Estimated blood loss: 5mL-10mL. Procedure completed. Patient transferred by wheelchair to 1st floor. Vital chart was stopped. Access Site Site: Right Radial artery Sheath Size: 6 Fr Hemostasis Method: TR Band Hemostasis Success: Successful Procedure Medications Start: 12:13 PM Stop: 12:13 PM Medication: Versed Amount: 1 mg Route: I.V. Start: 12:13 PM Stop: 12:13 PM Medication: Fentanyl Amount: 50 mcg Route: I.V. Start: 12:22 PM Stop: 12: PM Medication: Fentanyl Amount: 50 mcg Route: I.V. Start: 12:23 PM Stop: 12:23 PM Medication: Verapamil Amount: 5 mg Route: I.A. Start: 12:23 PM Stop: 12:23 PM Medication: Versed Amount: 1 mg Route: I.V. Start: 12:23 PM Stop: 12:23 PM Medication: Nitrogylcerin Amount: 200 mcg Route: I.A. Start: 12:25 PM Stop: 12:25 PM Medication: Versed Amount: 1 mg Route: I.V. Start: 12:26 PM Stop: 12:26 PM Medication: Heparin Amount: 5000 units Route: I.V. Start: 12:29 PM Stop: 12:29 PM Medication: 0.9% Saline Amount: 150 ml Route: I.V. bolus Start: 12:48 PM Stop: 12:48 PM Medication: Versed Amount: 1 mg Route: I.V. Start: 12:55 PM Stop: 12:55 PM Medication: Aggrastat 12.5 mg/250 mL Amount: 43 ml Route: I.V. bolus Start: 12:56 PM Stop: 12:56 PM Medication: Aggrastat 12.5 mg/250 mL Amount: 15.5 ml/hr Route: I.V. sesar Dominguez, the attending physician, have reviewed and verified all procedure medications. 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
[2020-05-09] MEDS: diphenhydrAMINE 50 mg Capsule PO (11:56)
--- NOTE | 2020-05-09 12:13 | W.PM.OPSUD ---
Surgery/Procedure H&P Update DATE OF PROCEDURE: May 09, 2020 DATE H&P PERFORMED: 04/29/20 H&P UPDATE INFORMATION: I have reviewed H&P completed within last 30 days, I have examined patient prior to procedure and No changes to prior documentation PREOP DIAGNOSIS: Cardiomyopathy/abnormal stress test PLANNED PROCEDURE: Operation Date: 05/09/20 12:00 Proposed Procedures p Left Cardiac Catheterization R94.39 [id number](Left) - Shelley Cormier MD PATIENT REASSESSED PRIOR TO SEDATION, WITH NO CHANGE NOTED: Yes PHYSICAL EXAM: alert, oriented x 3, clear to auscultation bilaterally and regular rate & rhythm AIRWAY EVAL/ANESTHESIA PLAN: normal airway, see other exam findings, ASA III, Monitored Anesthesia, Local Anesthesia, Risks, benefits & alternatives of sedation and/or procedure discussed and Patient agrees to continue as planned
--- NOTE | 2020-05-09 16:45 | PC.NURSE ---
spoke with Dr. Duran about brilinta ordered for this evening instructions for it to start 05/10/20 at 0900 due to 180mg brilinta given in director of cath lab today
[2020-05-09 17:20] LABS: Glucose Point of Care 162 mg/dL (70-110)
--- NOTE | 2020-05-09 17:50 | PC.NURSE ---
spoke with Dr. Cormier with concerns of patient reports of SOB and elevated blood pressure instructions recived to give 40mg IVP lasix and amlodipine 5mg po now instructions to call supervisor telephone clerks for further instructions Dr. gerardo carrillo notified of hematoma Dr. perdomo will report to bedside
[2020-05-09] MEDS: FUROsemide 10 mg/mL SDV 4mL 40 MG IVP (18:07)
[2020-05-09] MEDS: gabapentin 300 mg Capsule 600 MG PO (18:07)
[2020-05-09] MEDS: atorvastatin 40 mg Tablet PO (18:07)
[2020-05-09] MEDS: amlodipine 5 mg Tablet PO (18:07)
--- NOTE | 2020-05-09 18:46 | PC.NURSE ---
call from Dr Cormier to check on patients blood pressure instructions to give patients home dose of lisiopril PO 40mg now x 1 and Isosorbide mononitrate 30mg PO
[2020-05-09] MEDS: isosorbide mononitrate ER 30 mg Tablet PO (19:01)
[2020-05-09] MEDS: lisinopril 20 mg Tablet 40 MG PO (19:01)
--- NOTE | 2020-05-09 22:58 | PC.NURSE ---
PT IS RESTING IN BED. AIR WAS REMOVE FROM TR BAND ACCORDING TO PROTOCOL. PRESSURE DRESSING WAS PLACED. HEMATOMA WAS PRESENT DR CRUZ WAS NOTIFIED. HEMATOMA IS RESOLVING WELL. V/S WNL WILL CONTINUE TO MONITOR.
[2020-05-10] VITALS (18 sets, daily range): BP systolic 92–153; BP diastolic 50–79; PULSE 58–88; RESP 12–24; TEMP 36.6–36.7; O2SAT 92–98
--- NOTE | 2020-05-10 05:14 | PC.NURSE ---
PT IS RESTING IN BED. PT DENIES PAIN. PULSE PALPABLE DISTAL OF INCISION SITE. DRESSING IS C/D/I. WILL CONTINUE TO MONITOR.
[2020-05-10 06:08] LABS: Anion Gap 17.7 (5-19); Blood Urea Nitrogen 18 mg/dL (8-23); Calcium 9.5 mg/dL (8.5-10.5); Carbon Dioxide 26 mmol/L (22-29); Chloride 99 mmol/L (98-107); Glucose 139 mg/dL (65-115); Osmolality Calculated 292 mOsm/kg (285-295); Potassium 3.7 mmol/L (3.5-5.1); Sodium 139 mmol/L (136-145)
[2020-05-10 06:44] LABS: Basophils % 0.7 %; Eosinophils # 0.1 10^3/uL (0.0-0.8); Eosinophils % 2.5 %; Hematocrit 45.9 % (42.0-52.0); Hemoglobin 13.9 g/dL (11.7-16.6); Lymphocytes % 17.1 %; Mean Corpuscular HGB Conc 30.3 g/dL (30.0-36.0); Mean Corpuscular Hemoglobin 32.9 pg (28.0-34.0); Mean Corpuscular Volume 108.5 fL (80-94); Mean Platelet Volume 9.8 fL (7.4-10.4); Monocytes # 0.5 10^3/uL (0.2-0.9); Monocytes % 8.1 %; Neutrophils # 3.96 10^3/uL (1.8-7.7); Neutrophils % 71.1 %; Nucleated Red Blood Cells % 0 %; Platelet Count 246 10^3/cmm (130-400); Red Blood Count 4.23 10^6/uL (4.1-5.3); Red Cell Distribution Width 12.8 % (12.1-15.1); White Blood Count 5.6 10^3/uL (4.0-10.0)
[2020-05-10] MEDS: aspirin 81 mg EC Tablet PO (09:01)
[2020-05-10] MEDS: ticagrelor 90 mg Tablet PO (09:01)
[2020-05-10] MEDS: isosorbide mononitrate ER 30 mg Tablet PO (09:02)
[2020-05-10] MEDS: amlodipine 5 mg Tablet PO (09:02)
[2020-05-10] MEDS: duloxetine 60 mg Capsule PO (09:02)
[2020-05-10] MEDS: lisinopril 20 mg Tablet 40 MG PO (09:02)
[2020-05-10] MEDS: gabapentin 300 mg Capsule 600 MG PO (09:02)
--- NOTE | 2020-05-10 11:01 | P.SS_ITS ---
Short Stay Summary Providers Date of Admit/Discharge: 05/10/20 Attending Provider: Shelley Cormier MD Primary Care Provider: Harika Valente MD Chief Complaint: Left Cardiac Catheterization HPI History of Present Illness Nico Saenz is a 75 year old male past medical history significant for hypertension hyperlipidemia diabetes mellitus due to LV dysfunction abnormal stress test underwent stress test found to have proximal mild to moderate tandem lesion distal lesion which was severely stenotic and significant with eccentric plaque's, it was treated with single drug-eluting stent posted by noncompliant balloon. Excellent angiographic result was achieved. Patient tolerated procedure well with mild hematoma in the right hand. Overall right hand looks good no numbness no tingling no motor deficit. He is feeling much better, he is in well compensated state of heart failure. I will discharge him today. I have advised patient to continue clopidogrel without interruption along with aspirin for at least 1 year after that we will decide. Patient has been advised to follow-up with Dr. Cormier as an outpatient. Home Meds/Allergies Home Medications and Allergies Home Medications Medication Instructions Recorded Confirmed Type amlodipine 5 mg tablet 5 mg PO DAILY 04/07/20 05/09/20 History atorvastatin 40 mg tablet 40 mg PO QPM 04/07/20 05/09/20 History budesonide-formoterol HFA 160 2 puff INHALATION BID 04/07/20 05/09/20 History mcg-4.5 mcg/actuation aerosol inhaler duloxetine 60 mg capsule,delayed 60 mg PO DAILY 04/07/20 05/09/20 History release gabapentin 600 mg tablet 600 mg PO BID 04/07/20 05/09/20 History glipizide 5 mg tablet 5 mg PO BID 04/07/20 05/09/20 History ipratropium 20 mcg-albuterol 100 1 puff INHALATION QID 04/07/20 05/09/20 History mcg/actuation mist for inhalation lidocaine 5 % topical ointment 1 applic TOPICAL BID PRN 04/07/20 05/09/20 History metformin 1,000 mg tablet 1,000 mg PO BID 04/07/20 05/09/20 History sertraline 100 mg tablet 100 mg PO QAM 04/07/20 05/09/20 History Nightime Pain Relief And Sleep 2 tab PO BEDTIME 04/08/20 05/09/20 History Allergies Allergy/AdvReac Type Severity Reaction Status Date / Time No Known Allergies Allergy Verified 05/09/20 11:57 PFSH Acute PFSH: Medical History Carcinoma of prostate History of anxiety History of posttraumatic stress disorder (PTSD) Hx of agent [place] exposure Hx of chest pain Hx of emphysema Hx of esophageal reflux Hx of essential hypertension Hx of hyperlipidemia Hx of malignant neoplasm of tonsil Hx of peripheral vascular disease Hx of type 2 diabetes mellitus Hypochondriasis Shortness of breath on exertion Surgical History History of bilateral knee replacement History of prostate surgery Hx of carpal tunnel repair Hx of neck surgery Family History Mother CAD (coronary artery disease) Aortic aneurysm Family/Other Stroke Denies family history of Diabetes Clotting disorder Dementia Chronic kidney disease (CKD) Suicide Anesthesia complication Bleeding disorder Lung disease Cancer Social History Smoking and tobacco status: former smoker Alcohol intake: never Dietary Habits: Current diet type/program: regular Vitals/I&O/Wt Last Vital Signs Temp 97.8 F 05/10/20 10:41 Pulse 85 05/10/20 10:41 Resp 18 05/10/20 10:41 BP 153/79 05/10/20 10:41 Pulse Ox 95 05/10/20 10:41 05/09/20 05/10/20 05/10/20 22:59 06:59 14:59 Intake Total 120 / 120 Output Total 475 / 475 600 / 1075 Balance -355 / -355 -600 / -955 Weight last 48 hrs Weight 188 lb Physical Exam Narrative: EXAM NARRATIVE: GENERAL: Patient is alert, awake and oriented x3. NECK: No jugular vein distension. HEENT: No cyanosis. No icterus. No pallor. HEART: Regular S1 and S2. No murmur, rub or gallop. LUNGS: Clear to auscultate bilaterally. ABDOMEN: Soft, nontender and nondistended. Positive bowel sounds. No guarding, rebound or tenderness. CENTRAL NERVOUS SYSTEM: Grossly nonfocal. EXTREMITIES: Lower extremities without edema bilaterally. 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 Routin e Exams 05/09/20 11:21 Ordered Discharge Plan Discharge Patient Disposition: Home Condition: Stable Prescriptions: New Brilinta 90 mg Tablet 90 mg PO BID Qty: 180 RF: 4 Continued ipratropium-albuterol 20-100 mcg/actuation mist 1 puff inhalation QID RF: 0 amlodipine 5 mg tablet 5 mg PO DAILY RF: 0 atorvastatin 40 mg tablet 40 mg PO QPM RF: 0 budesonide-formoterol 160-4.5 mcg/actuation HFA aerosol inhaler 2 puff inhalation BID RF: 0 duloxetine 60 mg capsule,delayed release(DR/EC) 60 mg PO DAILY RF: 0 gabapentin 600 mg tablet 600 mg PO BID RF: 0 glipizide 5 mg tablet 5 mg PO BID RF: 0 lidocaine 5 % ointment 1 applic topical BID PRN (Reason: unknown) RF: 0 metformin 1,000 mg tablet 1,000 mg PO BID RF: 0 sertraline 100 mg tablet 100 mg PO QAM RF: 0 lisinopril 40 mg tablet 40 mg PO DAILY 90 Days Qty: 90 RF: 3 Nightime Pain Relief And Sleep 2 tab PO BEDTIME RF: 0 isosorbide mononitrate 30 mg tablet extended release 24 hr 30 mg PO DAILY Qty: 30 RF: 0 nitroglycerin 0.4 mg tablet, sublingual 0.4 mg sublingual Q5M PRN (Reason: chest pain) Qty: 30 RF: 0 aspirin 81 mg tablet,delayed release (DR/EC) 81 mg PO DAILY Qty: 30 RF: 0 Discharge Orders: Discharge Order (Routine); Ordered 05/10/20 Ordered By: Isabel Duran Referrals: Shelley Cormier MD [Physician] - ([facility] will contact you to schedule an follow-up with Dr. Cormier in 6 to 8 weeks. If you haven't heard from them by Tuesday afternoon. Please call ) Angélica Kwan FNP [Nurse Practitioner] - ([facility] will contact you to schedule an follow-up with Angélica Kwan in 7 to 10 days. If you haven't heard from them by Tuesday afternoon. Please call ) Discharge Diet: Cardiac and Diabetic Patient Instructions: Ticagrelor (By mouth), Left Heart Catheterization (DC), Coronary Angioplasty (DC), Heart Healthy Diet (DC), Coronary Intravascular Stent Placement (DC), Post Angiogram Home Care Instructions Activity Restrictions/Additional Instructions: Follow-up with Angélica Kwan in 7 days, follow-up with Dr. Cormier in 6 to 8 weeks. 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
--- NOTE | 2020-05-10 13:30 | PC.NURSE ---
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 Discharge packet provided to pt.
== END 2020-05-10 12:33 | disposition home or self-care (01) ==
LOC: CSU 13:38
PROVIDERS: Internal Medicine Cardiovascular Disease; Admitting Provider Internal Medicine Cardiovascular Disease; PCP Family Medicine; Visit Provider Internal Medicine Cardiovascular Disease
DX: I25.10 Atherosclerotic heart disease of native coronary artery without angina pectoris (principal); I10 Essential (primary) hypertension; E11.9 Type 2 diabetes mellitus without complications; E78.5 Hyperlipidemia, unspecified; Z79.84 Long term (current) use of oral hypoglycemic drugs; Z87.891 Personal history of nicotine dependence; Z79.82 Long term (current) use of aspirin
CPT/HCPCS: 36415; 36416; 80048; 82962; 85025; 93452; 94640; C1725; C1769; C1874; C1887; C1894; C9600; G0378; J1644; J1940; J2250; J3010; J3246; J3490; J3535; J7030; Q0163; Q9967

== ENCOUNTER → 2020-05-15 10:49 | Outpatient (BNVA) | payer OTHER, SELFPAY | PROVIDERS: PCP Family Medicine; Visit Provider Nurse Practitioner Family | DX: I25.119 Atherosclerotic heart disease of native coronary artery with unspecified angina pectoris (principal) | CPT/HCPCS: 80048 ==

== ENCOUNTER → 2020-06-19 10:32 | Outpatient (BNVA) | payer OTHER, SELFPAY | PROVIDERS: PCP Family Medicine; Visit Provider Internal Medicine Cardiovascular Disease | DX: R07.89 Other chest pain (principal); R06.02 Shortness of breath; R01.1 Cardiac murmur, unspecified; R07.9 Chest pain, unspecified; I25.118 Atherosclerotic heart disease of native coronary artery with other forms of angina pectoris; I50.33 Acute on chronic diastolic (congestive) heart failure; E11.65 Type 2 diabetes mellitus with hyperglycemia; E78.5 Hyperlipidemia, unspecified; I11.0 Hypertensive heart disease with heart failure | CPT/HCPCS: 80048; 83880 ==

== ENCOUNTER 2020-09-03 07:32 | Outpatient (CLI) | payer OTHER, SELFPAY ==
--- NOTE | 2020-09-03 07:37 | US_ITS ---
WS: [id number] ULTRASOUND ABDOMEN CLINICAL INFORMATION: ABD PAIN COMPARISON: None. FINDINGS: Technically difficult examination due to bowel gas. Liver Size: Normal. Craniocaudal length: 16.1 cm. Echogenicity: Normal. Surface nodularity: None. Mass (size and location): None. Bile ducts Intrahepatic ducts: Normal. Common bile duct diameter: 0.2 cm. Gallbladder Normal. Gallstones: None. Gallbladder sludge: None. Gallbladder wall thickening: None. Pericholecystic fluid: None. Sonographic Delacruz sign: Absent. Pancreas Not well seen Spleen Splenomegaly: None. Craniocaudal length: 10.7 cm. Right kidney: Normal. Hydronephrosis: None. Size: 9.9 cm x 4.0 cm x 5.0 cm Left kidney: Normal. Hydronephrosis: None. Size: 10.5 cm x 4.5 cm x 7.3 cm. Abdominal aorta and IVC Visualized portions are normal. Ascites: None. US/US abdomen complete* [id number] IMPRESSION: Technically difficult examination due to bowel gas. 1. Normal liver 2. Normal gallbladder. No cholelithiasis. 3. Normal common bile duct. 4. No hydronephrosis in either kidney. 5. Normal spleen.
== END 2020-09-03 07:33 | disposition home or self-care (01) ==
LOC: US 07:34
PROVIDERS: PCP Family Medicine; Visit Provider Family Medicine
DX: R10.9 Unspecified abdominal pain (principal)
CPT/HCPCS: 76700

== ENCOUNTER 2020-11-12 13:39 | Outpatient (CLI) | payer OTHER, SELFPAY ==
--- NOTE | 2020-11-12 13:55 | CT_ITS ---
WS: [id number] CT ABDOMEN AND PELVIS NONCONTRAST HISTORY: RIGHT upper quadrant pain near ribs for 6 months. History of prostate cancer. TECHNIQUE: Imaging performed through the abdomen and pelvis. Coronal and sagittal reformats are submi tted. All CT scans at [facility] use at least one of these dose optimization techniques: auto mated exposure control; mA and/or kV adjustment per patient size (includes targeted exams where dose is matched to clinical indication); or iterative reconstruction. DLP: 739.99 mGycm COMPARISON: None available. Lower thorax: Severe emphysema at the lung bases. Interstitial thickening in the periphery is probabl y chronic. Heart size is normal. No hiatal hernia. Liver: Normal size liver. No mass or bile duct dilatation. Gallbladder: Normal gallbladder. Pancreas: Normal size and attenuation. Normal pancreatic duct. No pancreatitis or mass. Spleen: Normal. Adrenal glands: Normal RIGHT adrenal gland. LEFT adrenal gland contains an 18 mm low-attenuation nodu le which is likely an adenoma. Right kidney: Normal size kidney with no mass or hydronephrosis. Left kidney: Normal size kidney with no mass or hydronephrosis. Aorta: Moderate to severe atherosclerosis abdominal aorta. No aneurysm. Atherosclerosis continues int o the common iliac arteries. No free fluid, intraperitoneal air or significant lymphadenopathy. GI tract: Normal appendix. No obstruction. There are a few scattered diverticula in the sigmoid colon . No acute diverticulitis or wall thickening. Abdominal wall: Negative. No hernia. Pelvis: Minimally distended urinary bladder. Prior prostatectomy. No adenopathy or ascites. Inguinal canals are patent containing fat only. Osseous structures: Large anterior bridging osteophytes throughout the lumbar spine. CT/CT abdomen pelvis wo con [id number] IMPRESSION: 1. No acute abdominal or pelvic abnormalities. 2. Mild sigmoid diverticulosis without diverticulitis. 3. Emphysematous and fibrotic changes at the lung bases. 4. Normal appendix. 5. No ascites or adenopathy.
[2020-11-12] MEDS: iohexol 300 mg/mL 50 mL Btl PO (13:57)
== END 2020-11-12 13:40 | disposition home or self-care (01) ==
PROVIDERS: PCP Family Medicine; Visit Provider Family Medicine
DX: R10.11 Right upper quadrant pain (principal); K57.30 Diverticulosis of large intestine without perforation or abscess without bleeding
CPT/HCPCS: 74176; Q9967

== ENCOUNTER 2021-01-31 12:19 | Emergency (ER) | payer OTHER, MEDICARE, SELFPAY ==
[2021-01-31 12:40] VITALS: BP 155/83; PULSE 73; RESP 16; TEMP 37.1; O2SAT 95; BMI 24.3
--- NOTE | 2021-01-31 13:14 | XRR_ITS ---
PROCEDURE INFORMATION: Exam: XR Chest Exam date and time: 01/31/2021 1:14 PM Age: 75 years old Clinical indication: Other: Weakness; Additional info: Feeling unwell, weakness TECHNIQUE: Imaging protocol: XR of the chest. Views: 1 view. Total images: 2 COMPARISON: 1. CR XR chest 1V portable [id number] 04/08/2020 10:[address] abdomen pelvis con [id number] 11/12/2020 2:03:46 PM FINDINGS: Lungs: New subtle ground-glass interstitial lung disease base of the right upper lobe anterior segment potential active interstitial pneumonitis. COPD/chronic bronchitis/emphysema. Senile fibrosis lung bases stable. Pleural spaces: No pleural effusion. No pneumothorax. Heart/Mediastinum: Cardiac structures and configuration with arteriosclerosis. Bones/joints: Unremarkable for age. XR/XR chest 1V portable [id number] IMPRESSION: New subtle ground-glass interstitial lung disease anterior segment right upper lobe potential active interstitial pneumonitis. Radiation Dose CTDIVOL = (mGy): DLP = (mGy-cm)
--- NOTE | 2021-01-31 13:23 | ED_ITS ---
Documented by User: MELISA Raygoza 01/31/21 15:25 HPI - Nausea/Vomiting/Diarrhea General: Chief complaint: Abdominal Pain Stated complaint: N/V & HIVES Time Seen by Provider: 01/31/21 12:56 Source: patient Mode of arrival: ambulatory Limitations: no limitations History of Present Illness: HPI Narrative: Patient is a 75-year-old male who presents to ED today along with his who is also being seen for his complaints of abdominal pain, nausea, vomiting, diarrhea. Patient states he has been sick over the past several days with symptoms. He states he has previously been tested for COVID which was negative. He states his initially began getting symptoms after attending some type of recital/concert and thinks that she got him sick. Patient states he is having anywhere from 3-5 episodes of nausea and vomiting daily. He states when he gets periods of nausea if he can take a drink of water this seems to help. He is not having any episodes of hematemesis. Patient states he is having approximately 5-7 episodes of semi- formed/watery diarrhea daily. He reports stools are non-bloody or dark appearing. He states he gets episodes of diffuse abdominal cramping prior to vomiting or defecating. He is not running fevers. No shortness of breath or cough. No urinary symptoms. MD elicited complaint: nausea, vomiting, diarrhea and abdominal pain Onset (ago): day(s) Description of diarrhea: watery and semi-solid Associated nausea: Yes Associated abdominal pain: Yes Location of pain: Diffuse Relieving factors: other (drink of water helps alleviate nausea) Context: sick contacts ( sick with similar symptoms ) Associated symtoms: Reports nausea; Denies change in vision, chest pain, dizziness, dysuria, fatigue, headache(s), palpitations or syncope Review of Systems Const: Denies: fever(s), chills, body aches or fatigue Eyes: Denies: change in vision or blurry vision ENMT: Denies: throat pain, odynophagia, nasal discharge, nasal congestion, post nasal drip or sinus pain Card: Denies: chest pain, palpitations, irregular heart rhythm, edema, lightheadedness, syncope or pre-syncope Resp: Denies: dyspnea, productive cough or non-productive cough GI: Reports: abdominal pain, nausea, vomiting, diarrhea and GI cramping; Denies: hematemesis, rectal swelling, hematochezia or melena : Denies: flank pain, difficulty urinating, dysuria, urinary frequency or urinary urgency Musc: Denies: neck pain, back pain, extremity pain or joint pain Skin/Breast: Reports: rash Neuro: Denies: headache(s), numbness in extremities, weakness in extremities, sensory changes or dizziness PFSH ED PFSH: Medical History Carcinoma of prostate Coronary artery disease History of anxiety History of posttraumatic stress disorder (PTSD) Hx of agent [place] exposure Hx of chest pain Hx of emphysema Hx of esophageal reflux Hx of essential hypertension Hx of hyperlipidemia Hx of malignant neoplasm of tonsil Hx of peripheral vascular disease Hx of type 2 diabetes mellitus Hypochondriasis Shortness of breath on exertion Systolic congestive heart failure with reduced left ventricular function, NYHA class 3 Surgical History History of bilateral knee replacement History of prostate surgery Hx of carpal tunnel repair Hx of neck surgery Family History Mother CAD (coronary artery disease) Aortic aneurysm Family/Other Stroke Denies family history of Diabetes Clotting disorder Dementia Chronic kidney disease (CKD) Suicide Anesthesia complication Bleeding disorder Lung disease Cancer Social History Smoking and tobacco status: former smoker Alcohol intake: never Physical Exam Const: COMMON NORMALS: no acute distress, average body habitus, patient oriented x3, no limitations, healthy appearing, alert and well nourished GENERAL APPEARANCE: cooperative ORIENTATION/CONSCIOUSNESS: Yes awake, Yes oriented to person, Yes oriented to place and Yes oriented to time HENMT: COMMON NORMALS: normocephalic and atraumatic HEAD & SCALP: normocephalic and atraumatic Resp: COMMON NORMALS: normal respiratory effort and clear to auscultation bilaterally AUSCULTATION: clear to auscultation bilaterally Cardio: COMMON NORMALS: regular rate and regular rhythm RATE: regular rate RHYTHM: regular rhythm GI: COMMON NORMALS: Normal to inspection, nondistended, normoactive bowel sounds present, Soft to palpation, No hepatosplenomegaly present and no masses INSPECTION: Yes normal to inspection PALPATION: Yes Soft to palpation, Yes Tenderness to palpation present (GI) (mild diffusely ) and Yes No hepatosplenomegaly present : COMMON NORMALS: Yes no CVA tenderness BLADDER/KIDNEY EXAM: Yes no CVA tenderness Back/Pelvis: COMMON NORMALS: no CVA tenderness Extremity: COMMON NORMALS: no joint enlargement, no calf tenderness and no pedal edema Neuro: YOBANY COMA SCALE: document GCS findings Yobany coma scale eye opening: Spontaneous Yobany coma scale verbal response: Orientated Yobany coma scale motor response: Obey commands Yobany coma scale total score: 15 COMMON NORMALS: patient oriented x3, CN's II-XII intact bilaterally, moves all extremities, no focal motor deficits and no sensory deficits noted SENSOR IUM/ORIENTATION: Yes alert, Yes oriented to person, Yes oriented to place and Yes oriented to time Skin: COMMON NORMALS: no wounds NARRATIVE SKIN EXAM: a few small erythematous scaly patches to anterior chest Course Vital Signs: Vital signs: Vital Signs Temperature 98.7 F 01/31/21 12:40 Pulse Rate 85 01/31/21 15:03 Respiratory Rate 18 01/31/21 15:03 Blood Pressure 142/84 01/31/21 15:03 Pulse Oximetry 94 01/31/21 15:03 MDM - Nausea/Vomiting/Diarrhea MDM Narrative: Medical decision making narrative: Patient is requesting discharge from the ED as he feels claustrophobic and wants to go outside and get some fresh air . I told patient the remainder of his labs are not completed yet and he verbalizes understanding and would still like to go home. Patient was made aware of his CXR results and his positive COVID results. Patient is unvaccinated for COVID and made statements that he does not necessarily believe the reality of COVID. He is refusing MCA even though I explained to him based on his age and comorbidities he would have a significant risk of progression. He verbalizes understanding and states he still would like to leave without receiving MCA. I was able to get him to agree to oral dexamethasone. Strict return to ED precautions given. Lab Data: Labs: Lab Results 01/31/21 01/31/21 01/31/21 13:38 13:38 13:38 WBC 2.8 10^3/uL L 10^ 3/uL (4.0-10.0) RBC 4.34 10^6/uL 10^6 /uL (4.1-5.3) Hgb 14.3 g/dL g/dL (11.7-16.6) Hct 41.2 % L % (42.0-52.0) MCV 94.9 fl H fl (80-94) MCH 32.9 pg pg (28.0-34.0) MCHC 34.7 g/dL g/dL (30.0-36.0) RDW 11.9 % L % (12.1-15.1) Plt Count 165 10^3/cmm 10^3 /cmm (130-400) MPV 10.2 fL fL (7.4-10.4) Neut % (Auto) 74.5 % % Lymph % (Auto) 16.5 % % [place] % (Auto) 8.6 % % Eos % (Auto) 0.0 % % Baso % (Auto) 0.4 % % Neut # (Auto) 2.07 10^3/uL 10^3 /uL (1.8-7.7) Lymph # (Auto) 0.5 10^3/uL L 10^ 3/uL (0.8-4.8) [place] # (Auto) 0.2 10^3/uL 10^3/ uL (0.2-0.9) Eos # (Auto) 0.0 10^3/uL 10^3/ uL (0.0-0.8) Baso # (Auto) 0.0 10^3/uL 10^3/ uL (0.0-0.1) Nucleated RBC % (a uto) 0 % % Nucleated RBCs # 0.0 /100WBC /100W BC Sodium 133 mmol/L L mmol /L (136-145) Potassium 4.0 mmol/L mmol/L (3.5-5.1) Chloride 92 mmol/L L mmol/ L (98-107) Carbon Dioxide 28 mmol/L mmol/L (22-29) Anion Gap 17.0 (5-19) BUN 17 mg/dL mg/dL (8-23) Creatinine 0.9 mg/dL mg/dL (0.7-1.2) GFR Calculation Not Reportable Glucose 297 mg/dL H mg/dL (65-115) Calculated Osmolal ity 289 mOsm/kg mOsm/ kg (285-295) Calcium 9.4 mg/dL mg/dL (8.5-10.5) Total Bilirubin 0.6 mg/dL mg/dL (0.15-1.2) AST 24 U/L U/L (0-40) ALT 20 U/L U/L (0-41) Alkaline Phosphata se 143 IU/L H IU/L (40-130) Total Protein 7.2 g/dL g/dL (6.6-8.7) Albumin 4.2 g/dL g/dL (3.5-5.2) Globulin 3.0 g/dL g/dL (1.3-4.6) Lipase 35 U/L U/L (13-60) Urine Color Yellow (Yellow) Urine Appearance Clear (CLEAR) Urine pH 5 (5-7) Ur Specific Gravit y 1.015 (1.005-1.030) Urine Protein 1+ H (Negative) Urine Glucose (UA) 4+ H (Normal) Urine Ketones Negative (Negative) Urine Blood 2+ H (Negative) Urine Nitrate Negative (Negative) Urine Bilirubin Neg (Negative) Urine Urobilinogen Norm mg/dL mg/dL (Negative) Ur Leukocyte Jeanette ase Negative (Negative) Urine RBC Rare /hpf /hpf (0-2) Urine WBC 0-4 /hpf H /hpf (0-5) Ur Squamous Epith Cells None /hpf /hpf (0-5) Amorphous Sediment Not Reportable Urine Bacteria 1+ /hpf H /hpf (NONE) SARS-CoV-2 Ag (Rap id) 3 01/31/21 14:05 WBC RBC Hgb Hct MCV MCH MCHC RDW Plt Count MPV Neut % (Auto) Lymph % (Auto) [place] % (Auto) Eos % (Auto) Baso % (Auto) Neut # (Auto) Lymph # (Auto) [place] # (Auto) Eos # (Auto) Baso # (Auto) Nucleated RBC % (a uto) Nucleated RBCs # Sodium Potassium Chloride Carbon Dioxide Anion Gap BUN Creatinine GFR Calculation Glucose Calculated Osmolal ity Calcium Total Bilirubin AST ALT Alkaline Phosphata se Total Protein Albumin Globulin Lipase Urine Color Urine Appearance Urine pH Ur Specific Gravit y Urine Protein Urine Glucose (UA) Urine Ketones Urine Blood Urine Nitrate Urine Bilirubin Urine Urobilinogen Ur Leukocyte Jeanette ase Urine RBC Urine WBC Ur Squamous Epith Cells Amorphous Sediment Urine Bacteria SARS-CoV-2 Ag (Rap id) Positive H (Negative) Imaging Data^: CXR: Radiologist's impression: [address] [id number] ReportSigned Patient: Yulia Saenz #: [id number]: [id number]#:[id number]/Sex: 75 / MADM Date: 01/31/21Loc: ERRoom/Bed:Attending Dr: Ordering Provider/Ordering MD: Adrienne Ruiz Date of Service: 01/31/21 Procedure(s): XR chest 1V portable [id number] Accession Number(s): [id number] Report Number: [id number] PROCEDURE INFORMATION: Exam: XR Chest Exam date and time: 01/31/2021 1:14 PM Age: 75 years old Clinical indication: Other: Weakness; Additional info: Feeling unwell, weakness TECHNIQUE: Imaging protocol: XR of the chest. Views: 1 view. Total images: 2 COMPARISON: 1. CR XR chest 1V portable [id number] 04/08/2020 10:[address] abdomen pelvis wo con [id number] 11/12/2020 2:03:46 PM FINDINGS: Lungs: New subtle ground-glass interstitial lung disease base of the right upper lobe anterior segment potential active interstitial pneumonitis. COPD/chronic bronchitis/emphysema. Senile fibrosis lung bases stable. Pleural spaces: No pleural effusion. No pneumothorax. Heart/Mediastinum: Cardiac structures and configuration with arteriosclerosis. Bones/joints: Unremarkable for age. XR/XR chest 1V portable [id number] IMPRESSION: New subtle ground-glass interstitial lung disease anterior segment right upper lobe potential active interstitial pneumonitis. Radiation Dose CTDIVOL = (mGy): DLP = (mGy-cm) Dictated By:Roslyn New By:Roslyn New Date/Time:01/31/21 [id number]/ 1314 Discharge Plan Discharge Patient Disposition: Home Clinical Impression: COVID-19, Pneumonia due to 2019-nCoV Condition: Stable Prescriptions: New dexamethasone 6 mg tablet 6 mg PO DAILY Qty: 6 RF: 0 No Action ipratropium-albuterol 20-100 mcg/actuation mist 1 puff inhalation QID RF: 0 atorvastatin 40 mg tablet 40 mg PO QPM RF: 0 budesonide-formoterol 160-4.5 mcg/actuation HFA aerosol inhaler 2 puff inhalation BID RF: 0 duloxetine 60 mg capsule,delayed release(DR/EC) 60 mg PO DAILY RF: 0 gabapentin 600 mg tablet 600 mg PO BID RF: 0 glipizide 5 mg tablet 5 mg PO BID RF: 0 metformin 1,000 mg tablet 1,000 mg PO BID RF: 0 sertraline 100 mg tablet 100 mg PO QAM RF: 0 lisinopril 40 mg tablet 40 mg PO DAILY 90 Days Qty: 90 RF: 3 amlodipine 10 mg tablet 10 mg PO DAILY 90 Days Qty: 90 RF: 3 furosemide [Lasix] 40 mg tablet 40 mg PO DAILY Qty: 90 RF: 2 clopidogrel 75 mg tablet 75 mg PO DAILY Qty: 90 RF: 3 potassium chloride 20 mEq tablet extended release 20 meq PO DAILY Qty: 30 RF: 0 Nightime Pain Relief And Sleep 2 tab PO BEDTIME RF: 0 isosorbide mononitrate 30 mg tablet extended release 24 hr 30 mg PO DAILY Qty: 30 RF: 0 nitroglycerin 0.4 mg tablet, sublingual 0.4 mg sublingual Q5M PRN (Reason: chest pain) Qty: 30 RF: 0 aspirin 81 mg tablet,delayed release (DR/EC) 81 mg PO DAILY Qty: 30 RF: 0 Discharge Orders: Discharge ED (Routine); Ordered 01/31/21 Ordered By: Adrienne Ruiz Referrals: Harika Valente MD [Primary Care Provider] - Patient Instructions: COVID-19 (Coronavirus Disease 2019) (ED), How to Recover from COVID-19 at Home (ED) Activity Restrictions/Additional Instructions: As we discussed you are wanting to be discharged from the ED prior to all of your labs coming back. You have been informed that you did test positive for COVID. I have recommended monoclonal antibody infusion however you have refused this. You are agreeable to oral dexamethasone therefore I have written you a prescription for this. You need to quarantine for a full 10 days starting at symptom onset and quarantine will not be lifted until you are fever free without medications for 24 hours and symptoms are improving. You need to return to the emergency department immediately for any worsening symptoms, severe shortness of breath, difficulty breathing, chest pain, uncontrollable fevers, or any other concerns you may have. I hope you begin to feel better soon. Coding Level of Care Code ED [employer] for [employer]g Fwd Exam Comprehensive Documented by User: Herber Lino DO 01/31/21 15:26 HPI - Nausea/Vomiting/Diarrhea General: Chief complaint: Abdominal Pain Stated complaint: N/V & HIVES Time Seen by Provider: 01/31/21 12:56 PFSH ED PFSH: Medical History Carcinoma of prostate Coronary artery disease History of anxiety History of posttraumatic stress disorder (PTSD) Hx of agent [place] exposure Hx of chest pain Hx of emphysema Hx of esophageal reflux Hx of essential hypertension Hx of hyperlipidemia Hx of malignant neoplasm of tonsil Hx of peripheral vascular disease Hx of type 2 diabetes mellitus Hypochondriasis Shortness of breath on exertion Systolic congestive heart failure with reduced left ventricular function, NYHA class 3 Surgical History History of bilateral knee replacement History of prostate surgery Hx of carpal tunnel repair Hx of neck surgery Family History Mother CAD (coronary artery disease) Aortic aneurysm Family/Other Stroke Denies family history of Diabetes Clotting disorder Dementia Chronic kidney disease (CKD) Suicide Anesthesia complication Bleeding disorder Lung disease Cancer Social History Smoking and tobacco status: former smoker Alcohol intake: never Course Vital Signs: Vital signs: Vital Signs Temperature 98.7 F 01/31/21 12:40 Pulse Rate 85 01/31/21 15:03 Respiratory Rate 18 01/31/21 15:03 Blood Pressure 142/84 01/31/21 15:03 Pulse Oximetry 94 01/31/21 15:03 MDM - Nausea/Vomiting/Diarrhea MDM Narrative: Medical decision making narrative: Chart reviewed and patient discussed with midlevel. Agree with assessment and plan. Lab Data: Labs: Lab Results 01/31/21 01/31/21 01/31/21 13:38 13:38 13:38 WBC 2.8 10^3/uL L 10^ 3/uL (4.0-10.0) RBC 4.34 10^6/uL 10^6 /uL (4.1-5.3) Hgb 14.3 g/dL g/dL (11.7-16.6) Hct 41.2 % L % (42.0-52.0) MCV 94.9 fl H fl (80-94) MCH 32.9 pg pg (28.0-34.0) MCHC 34.7 g/dL g/dL (30.0-36.0) RDW 11.9 % L % (12.1-15.1) Plt Count 165 10^3/cmm 10^3 /cmm (130-400) MPV 10.2 fL fL (7.4-10.4) Neut % (Auto) 74.5 % % Lymph % (Auto) 16.5 % % [place] % (Auto) 8.6 % % Eos % (Auto) 0.0 % % Baso % (Auto) 0.4 % % Neut # (Auto) 2.07 10^3/uL 10^3 /uL (1.8-7.7) Lymph # (Auto) 0.5 10^3/uL L 10^ 3/uL (0.8-4.8) [place] # (Auto) 0.2 10^3/uL 10^3/ uL (0.2-0.9) Eos # (Auto) 0.0 10^3/uL 10^3/ uL (0.0-0.8) Baso # (Auto) 0.0 10^3/uL 10^3/ uL (0.0-0.1) Nucleated RBC % (a uto) 0 % % Nucleated RBCs # 0.0 /100WBC /100W BC Sodium 133 mmol/L L mmol /L (136-145) Potassium 4.0 mmol/L mmol/L (3.5-5.1) Chloride 92 mmol/L L mmol/ L (98-107) Carbon Dioxide 28 mmol/L mmol/L (22-29) Anion Gap 17.0 (5-19) BUN 17 mg/dL mg/dL (8-23) Creatinine 0.9 mg/dL mg/dL (0.7-1.2) GFR Calculation Not Reportable Glucose 297 mg/dL H mg/dL (65-115) Calculated Osmolal ity 289 mOsm/kg mOsm/ kg (285-295) Calcium 9.4 mg/dL mg/dL (8.5-10.5) Total Bilirubin 0.6 mg/dL mg/dL (0.15-1.2) AST 24 U/L U/L (0-40) ALT 20 U/L U/L (0-41) Alkaline Phosphata se 143 IU/L H IU/L (40-130) Total Protein 7.2 g/dL g/dL (6.6-8.7) Albumin 4.2 g/dL g/dL (3.5-5.2) Globulin 3.0 g/dL g/dL (1.3-4.6) Lipase 35 U/L U/L (13-60) Urine Color Yellow (Yellow) Urine Appearance Clear (CLEAR) Urine pH 5 (5-7) Ur Specific Gravit y 1.015 (1.005-1.030) Urine Protein 1+ H (Negative) Urine Glucose (UA) 4+ H (Normal) Urine Ketones Negative (Negative) Urine Blood 2+ H (Negative) Urine Nitrate Negative (Negative) Urine Bilirubin Neg (Negative) Urine Urobilinogen Norm mg/dL mg/dL (Negative) Ur Leukocyte Jeanette ase Negative (Negative) Urine RBC Rare /hpf /hpf (0-2) Urine WBC 0-4 /hpf H /hpf (0-5) Ur Squamous Epith Cells None /hpf /hpf (0-5) Amorphous Sediment Not Reportable Urine Bacteria 1+ /hpf H /hpf (NONE) SARS-CoV-2 Ag (Rap id) 01/31/21 14:05 WBC RBC Hgb Hct MCV MCH MCHC RDW Plt Count MPV Neut % (Auto) Lymph % (Auto) [place] % (Auto) Eos % (Auto) Baso % (Auto) Neut # (Auto) Lymph # (Auto) [place] # (Auto) Eos # (Auto) Baso # (Auto) Nucleated RBC % (a uto) Nucleated RBCs # Sodium Potassium Chloride Carbon Dioxide Anion Gap BUN Creatinine GFR Calculation Glucose Calculated Osmolal ity Calcium Total Bilirubin AST ALT Alkaline Phosphata se Total Protein Albumin Globulin Lipase Urine Color Urine Appearance Urine pH Ur Specific Gravit y Urine Protein Urine Glucose (UA) Urine Ketones Urine Blood Urine Nitrate Urine Bilirubin Urine Urobilinogen Ur Leukocyte Jeanette ase Urine RBC Urine WBC Ur Squamous Epith Cells Amorphous Sediment Urine Bacteria SARS-CoV-2 Ag (Rap id) Positive H (Negative) Discharge Plan Discharge Patient Disposition: Home Clinical Impression: COVID-19, Pneumonia due to 2019-nCoV Condition: Stable Prescriptions: New dexamethasone 6 mg tablet 6 mg PO DAILY Qty: 6 RF: 0 No Action ipratropium-albuterol 20-100 mcg/actuation mist 1 puff inhalation QID RF: 0 atorvastatin 40 mg tablet 40 mg PO QPM RF: 0 budesonide-formoterol 160-4.5 mcg/actuation HFA aerosol inhaler 2 puff inhalation BID RF: 0 duloxetine 60 mg capsule,delayed release(DR/EC) 60 mg PO DAILY RF: 0 gabapentin 600 mg tablet 600 mg PO BID RF: 0 glipizide 5 mg tablet 5 mg PO BID RF: 0 metformin 1,000 mg tablet 1,000 mg PO BID RF: 0 sertraline 100 mg tablet 100 mg PO QAM RF: 0 lisinopril 40 mg tablet 40 mg PO DAILY 90 Days Qty: 90 RF: 3 amlodipine 10 mg tablet 10 mg PO DAILY 90 Days Qty: 90 RF: 3 furosemide [Lasix] 40 mg tablet 40 mg PO DAILY Qty: 90 RF: 2 clopidogrel 75 mg tablet 75 mg PO DAILY Qty: 90 RF: 3 potassium chloride 20 mEq tablet extended release 20 meq PO DAILY Qty: 30 RF: 0 Nightime Pain Relief And Sleep 2 tab PO BEDTIME RF: 0 isosorbide mononitrate 30 mg tablet extended release 24 hr 30 mg PO DAILY Qty: 30 RF: 0 nitroglycerin 0.4 mg tablet, sublingual 0.4 mg sublingual Q5M PRN (Reason: chest pain) Qty: 30 RF: 0 aspirin 81 mg tablet,delayed release (DR/EC) 81 mg PO DAILY Qty: 30 RF: 0 Discharge Orders: Discharge ED (Routine); Ordered 01/31/21 Ordered By: Adrienne Ruiz Referrals: Harika Valente MD [Primary Care Provider] - Patient Instructions: COVID-19 (Coronavirus Disease 2019) (ED), How to Recover from COVID-19 at Home (ED) Activity Restrictions/Additional Instructions: As we discussed you are wanting to be discharged from the ED prior to all of your labs coming back. You have been informed that you did test positive for COVID. I have recommended monoclonal antibody infusion however you have refused this. You are agreeable to oral dexamethasone therefore I have written you a prescription for this. You need to quarantine for a full 10 days starting at symptom onset and quarantine will not be lifted until you are fever free without medications for 24 hours and symptoms are improving. You need to return to the emergency department immediately for any worsening symptoms, severe shortness of breath, difficulty breathing, chest pain, uncontrollable fevers, or any other concerns you may have. I hope you begin to feel better soon. Coding Level of Care Code ED [employer] for Mariaelena Fwnaz Exam Comprehensive
[2021-01-31] MEDS: sodium chloride 0.9% 1,000 ML 999 ML IV (13:41)
[2021-01-31 13:50] VITALS: BP 143/84; PULSE 63; RESP 18; O2SAT 96
[2021-01-31 13:56] LABS: Basophils % 0.4 %; Hematocrit 41.2 % (42.0-52.0); Hemoglobin 14.3 g/dL (11.7-16.6); Lymphocytes # 0.5 10^3/uL (0.8-4.8); Lymphocytes % 16.5 %; Mean Corpuscular HGB Conc 34.7 g/dL (30.0-36.0); Mean Corpuscular Hemoglobin 32.9 pg (28.0-34.0); Mean Corpuscular Volume 94.9 fl (80-94); Mean Platelet Volume 10.2 fL (7.4-10.4); Monocytes # 0.2 10^3/uL (0.2-0.9); Monocytes % 8.6 %; Neutrophils # 2.07 10^3/uL (1.8-7.7); Neutrophils % 74.5 %; Nucleated Red Blood Cells % 0 %; Platelet Count 165 10^3/cmm (130-400); Red Blood Count 4.34 10^6/uL (4.1-5.3); Red Cell Distribution Width 11.9 % (12.1-15.1); White Blood Count 2.8 10^3/uL (4.0-10.0)
[2021-01-31 14:25] LABS: Add Urine Culture? No; Add Urine Microscopic? YES; Bacteria Urine 1+ /hpf; Bilirubin Urine Neg (Negative); Blood Urine 2+ (Negative); Glucose Urine UA 4+ (Normal); Ketones Urine Negative (Negative); Leukocyte Esterase Urine Negative (Negative); Nitrate Urine Negative (Negative); Protein Urine 1+ (Negative); RBC Urine RARE /hpf (0-2); Specific Gravity, Urine 1.015 (1.005-1.030); Urine Appearance Clear (CLEAR); Urine Color Yellow (Yellow); Urobilinogen Urine Norm (Negative); WBC Urine 0-4 /hpf (0-5); pH Urine 5 (5-7)
[2021-01-31 14:38] LABS: SARS Covid-2 Antigen Positive (Negative)
[2021-01-31 14:50] LABS: Alanine Aminotransferase 20 U/L (0-41); Albumin Level 4.2 g/dL (3.5-5.2); Alkaline Phosphatase 143 IU/L (40-130); Aspartate Amino Transferase 24 U/L (0-40); Blood Urea Nitrogen 17 mg/dL (8-23); Calcium 9.4 mg/dL (8.5-10.5); Carbon Dioxide 28 mmol/L (22-29); Chloride 92 mmol/L (98-107); Glucose 297 mg/dL (65-115); Lipase 35 U/L (13-60); Osmolality Calculated 289 mOsm/kg (285-295); Sodium 133 mmol/L (136-145); Total Bilirubin 0.6 mg/dL (0.15-1.2); Total Protein 7.2 g/dL (6.6-8.7)
[2021-01-31 15:03] VITALS: BP 142/84; PULSE 85; RESP 18; O2SAT 94
== END 2021-01-31 15:04 | disposition home or self-care (01) ==
PROVIDERS: Emergency Provider Physician Assistant; PCP Family Medicine
DX: U07.1 COVID-19 (principal); J12.82 Pneumonia due to coronavirus disease 2019; Z79.84 Long term (current) use of oral hypoglycemic drugs; Z79.02 Long term (current) use of antithrombotics/antiplatelets; Z79.82 Long term (current) use of aspirin; I25.10 Atherosclerotic heart disease of native coronary artery without angina pectoris; J43.9 Emphysema, unspecified; E78.5 Hyperlipidemia, unspecified; Z85.89 Personal history of malignant neoplasm of other organs and systems; Z85.46 Personal history of malignant neoplasm of prostate; E11.9 Type 2 diabetes mellitus without complications; I11.0 Hypertensive heart disease with heart failure; I50.20 Unspecified systolic (congestive) heart failure; Z87.891 Personal history of nicotine dependence
CPT/HCPCS: 71045; 80053; 81001; 83690; 85025; 87426; 96360; 99283; J7030

== ENCOUNTER 2021-04-02 14:32 | Outpatient (CLI) | payer OTHER, SELFPAY ==
--- NOTE | 2021-04-03 11:47 | ONC CON_ITS ---
Dr. Lara New Patient Note Patient: Nico Saenz Unit #: [id number]: 1945 Dicatated By: Diana Lara M.D.Date of Visit: Apr 02, 2021 Onc MED New Patient/Consult Referring Physician: Harika Valente History of Present Illness: Mr. 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, underwent panendoscopy to confirm the primary which was negative so underwent left radical neck dissection/bilateral tonsillectomy on March 30, 2011 and final pathology report confirmed 1 out of 5 lymph node positive for metastatic squamous cell carcinoma with extranodal extension and the primary was unknown so pTx, pN1 M0, patient was offered combined chemoradiation with cisplatin, as per medical record patient declined chemotherapy but agreed for radiation therapy alone and because of related side effects on July 21, 2011, patient quit taking radiation therapy AGAINST MEDICAL ADVICE so he did not even complete recommended adjuvant radiation therapy. As per patient he was followed in ENT clinic at [facility] in [place] and in 2014, he underwent ENT evaluation and scans, and he was declared cancer free and no more follow-up were planned. Patient said he was also having his follow-up PSA done on yearly basis and showed no recurrence of prostate cancer and now he is not considering getting any more PSAs. As per patient his PMD asked him to follow-up with oncology regarding history of prostate cancer and head and neck cancer. But patient has no new symptoms except dryness of mouth and off and on dysphagia. No left neck mass, no dysuria or hematuria, no new bony pains and for the last week or 2, he has noticed some discomfort/fullness in his right breast under the nipple area, no nipple discharge. No trauma to right chest, no insect bite. No overlying skin changes., His appetite is good his weight has been stable. Denies any fever chills Past Medical History: Mr. Princes medical history consists of abdominal hernia, anxiety, arthropathy, carpal tunnel syndrome, diabetic neuropathy, emphysema, gastroesophageal reflux disease, heart disease, hyperlipidemia, hypertension, peripheral vascular disease, post traumatic stress disorder, type II diabetes, Covid 19 in 2019, and history of prostate cancer in 2007. Past Surgical History: There is no documented surgical history. Medications: Aspirin 1 Tablet (of 81 mg) Tablet, enteric coated Oral daily, Gabapentin 1 Tablet (of 600 mg) Oral b.i.d., glipiZIDE 1 Tablet (of 5 mg) Oral ac (bid), Glucosamine Tablet Oral b.i.d., hydrOXYzine HCl 1 Tablet (of 10 mg) Oral t.i.d., metFORMIN HCl 1 Tablet (of 1000 mg) Oral b.i.d., Naprosyn 1 Tablet (of 500 mg) Oral b.i.d., raNITIdine HCl 1 Tablet (of 150 mg) Oral daily, Sertraline HCl 1 Tablet (of 100 mg) Oral daily, Zestoretic 1 Tablet (of 20-25 mg) Oral daily Allergies: No Known Allergies. Social History: Mr. Saenz is . Mr. Saenz no longer smokes. He drinks occasionally. Quit smoking in 2002, Rare alcohol use. Family History: Mr. Saenz's mother at age 88. Mr. Saenz's father is : motor vehicle accident. Review Of Symptoms: Review of Systems is not available for this patient. Vital Signs: Performed on Apr 02, 2021 16:46: 0, 7, 25.68, 1.99 sq.m, 70 in, 95 % (LOW), 66 /min, 18 /min, 183/98 mm(hg) (HIGH), 97.9 F (LOW), and 179.0 lbs (HIGH). Performance Status: 0 - Fully active, able to carry on all predisease activities without restrictions. (ECOG) Physical Examination: ENMT - No mouth sores, no thrush, no jaundice, status post left radical neck dissection, Respiratory - Lungs are clear to auscultation, Cardiovascular - Regular rate and rhythm of heart , Abdomen - Soft, bowel sounds present, Extremities - No visible edema, Right breast exam shows mild puffiness in subareolar area no definite mass, no nipple discharge, no overlying skin changes. , No right axillary lymphadenopathy Lab/Imaging: Most recent lab results are not available for this patient. 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 So final stage was pTX, pN1, M0, patient was offered combined chemoradiation with cisplatin but patient declined chemotherapy and agreed for adjuvant radiation alone, due to related side effects, patient abandoned his treatment AGAINST MEDICAL ADVICE.As per patient he was followed in ENT clinic on regular basis, in 2014 based on ENT evaluation and scans he was declared cancer free, since then patient has normal follow-up History of prostate cancer, as per medical record it was in situ prostate cancer, underwent robotic prostatectomy in 2006, as per patient he was followed with PSA which remained normal Right breast fullness/discomfort, etiology unclear Plan: Discussed with patient regarding his disease status and recommendations, as far as prostate cancer is concerned, as per medical record he was in situ and for which he underwent robotic prostatectomy in 2006, as per patient his follow-up PSA remained within normal range and now he has decided not to consider any more PSA and with history of in situ prostate cancer, status post prostatectomy, risk of recurrence is very unlikely. As per his head and neck cancer is concerned, patient underwent left radical neck dissection for squamous cell cancer of unknown primary and he did not complete his recommended combined chemoradiation not only that, he did not even complete his recommended adjuvant radiation therapy, so he was high risk for recurrence and also risk of second primary in the lung. Patient recently underwent CT scan of chest abdomen which shows no evidence of disease. As far as head and neck cancer is concern, there is no evidence of recurrence since 2011, although patient did not complete recommended adjuvant therapy, so is less likely he will have recurrence but cannot be entirely ruled out but other concern is second primary in the lung and patient has history of smoking, in that case it would be appropriate to consider low-dose CT scan of chest on a yearly basis, we will recommend referral to pulmonology for evaluation for chronic lung disease. As far as right breast fullness/tenderness is concerned, no definite mass palpable but patient has discomfort, no nipple discharge, we will refer him to surgery for evaluation. We will also refer him to ENT for evaluation for dysphagia and dry mouth which could be due to radiation therapy and left radical neck dissection related changes. Patient will return to clinic after surgical/ENT evaluation Signed By: Diana Lara M.D. <<Signature on File>>
== END 2021-04-02 14:33 | disposition home or self-care (01) ==
PROVIDERS: PCP Family Medicine; Visit Provider Internal Medicine Hematology & Oncology
DX: Z08 Encounter for follow-up examination after completed treatment for malignant neoplasm (principal); Z85.89 Personal history of malignant neoplasm of other organs and systems; Z85.46 Personal history of malignant neoplasm of prostate; N64.59 Other signs and symptoms in breast; R13.10 Dysphagia, unspecified; Z79.899 Other long term (current) drug therapy; Z79.82 Long term (current) use of aspirin
CPT/HCPCS: 99205

== ENCOUNTER 2021-05-15 10:50 | Outpatient (CLI) | payer OTHER, SELFPAY ==
--- NOTE | 2021-05-15 10:54 | MM_ITS ---
WS: [id number] BILATERAL 3D TOMOSYNTHESIS DIGITAL DIAGNOSTIC MAMMOGRAPHY WITH CAD CLINICAL INFORMATION: N63.0 - Unspecified lump in unspecified breast. RIGHT breast pain and soreness TECHNIQUE: Bilateral CC, MLO, and ML views. FINDINGS: Scattered fibroglandular densities bilaterally. Palpable marker RIGHT breast at the 11:00 position ne ar the areola. No underlying suspicious mammographic abnormality. Ultrasound is pending. LEFT breast is unremarkable. ULTRASOUND BREAST BILATERAL TECHNIQUE: Ultrasound right breast focused area of concern. LEFT breast for comparison CLINICAL INFORMATION: N63.0 - Unspecified lump in unspecified breast FINDINGS: Ultrasound bilateral breasts. Ultrasound RIGHT breast at the areola 11:00 position. Normal underlying parenchymal tissue. No suspicious cystic or solid abnormalities. No suspicious lesions to target for biopsy. Comparison LEFT breast areola is normal. MM/[place] [id number] IMPRESSION: BI-RADS: 2-Benign FOLLOW UP: See Report
== END 2021-05-15 10:51 | disposition home or self-care (01) ==
LOC: RADSHAW 10:51
PROVIDERS: PCP Family Medicine; Visit Provider Surgery
DX: N63.11 Unspecified lump in the right breast, upper outer quadrant (principal)
CPT/HCPCS: 76642; 77062

== ENCOUNTER → 2021-09-08 14:19 | Outpatient (BNVA) | payer OTHER, SELFPAY | PROVIDERS: PCP Family Medicine; Visit Provider Internal Medicine Cardiovascular Disease | DX: I11.0 Hypertensive heart disease with heart failure (principal); I50.33 Acute on chronic diastolic (congestive) heart failure; I25.118 Atherosclerotic heart disease of native coronary artery with other forms of angina pectoris; E78.5 Hyperlipidemia, unspecified; E11.65 Type 2 diabetes mellitus with hyperglycemia; Z87.891 Personal history of nicotine dependence; Z79.84 Long term (current) use of oral hypoglycemic drugs | CPT/HCPCS: 80048; 83880; 99214 ==

== ENCOUNTER 2022-01-06 12:06 | Outpatient (CLI) | payer OTHER, SELFPAY ==
--- NOTE | 2022-01-06 12:45 | USCV_ITS ---
Nico Saenz Age: 76 Gender: M : 1945 Exam Date: 01/06/2022 12:27 Ordering Phys: Shelley Cormier MD ([email or web address]) Technologist: TARA [place]am [place] [facility] [place]: CARDIOMYOPATHY BP: 167 / 78 HR: 66 Rhythm: Sinus Technical Quality: Adequate MEASUREMENTS (Male / Female) Normal Values 2D ECHO LVOT Diameter 2.0 cm LV Ejection Fraction MOD 2C 68.6 % LV Ejection Fraction 2C AL 70.5 % LA Diameter 3.2 cm LA Width 3.4 cm LA Height 5.5 cm RA Width 3.5 cm RA Height 4.8 cm Aorta at Sinotubular Diameter 2.5 cm IVC Diameter 1.3 cm M-MODE Aortic Annulus Diameter 3.2 cm LA Ao Ratio MM 0.9 MV E Point Septal Separation 0.4 cm DOPPLER AV Peak Velocity 159.3 cm/s LVOT Peak Velocity 128.0 cm/s AV Area Cont Eq vti 2.6 cm squared AV Area Cont Eq pk 2.5 cm squared MV Peak Velocity 106.0 cm/s MV Area PHT 2.6 cm squared Mitral E to A Ratio 0.5 MV E' Velocity 32.5 cm/s Mitral E to MV E' Ratio 8.2 Mitral E to LV E' Lateral Ratio 7.5 Mitral E to LV E' Septal Ratio 9.1 TR Peak Velocity 149.6 cm/s TR Peak Gradient 9.0 mmHg TR Mean Velocity 87.4 cm/s TR Mean Gradient 3.5 mmHg TR Velocity Time Integral 24.8 cm TV Peak E Velocity 46.0 cm/s Right Atrial Pressure 3.0 mmHg Pulmonary Artery Systolic Pressu 12.0 mmHg PV Peak Velocity 104.0 cm/s RV Acceleration Time 0.1 s RV Ejection Time 0.3 s RV AcT/ET 0.4 FINDINGS Left Ventricle Normal left ventricular size and systolic function, EF 64 %. No regional wall motion abnormalities. Grade I/IV diastolic dysfunction (abnormal relaxation filling pattern), normal to mildly elevated filling pressures. Right Ventricle The right ventricle is normal in size and function. Right Atrium The right atrium is normal in size. Left Atrium The left atrium is normal in size. Mitral Valve Structurally normal mitral valve without significant stenosis or prolapse. There is no mitral regurgitation. Aortic Valve Thickened aortic valve. Tricuspid Valve Trace tricuspid valve regurgitation. Pulmonic Valve Pulmonic valve not well visualized. Pericardium Normal pericardium without effusion. Aorta Normal ascending aorta dimension. IVC The inferior vena cava appears normal. CONCLUSIONS Normal left ventricular size and systolic function, EF 64 %. No regional wall motion abnormalities. Grade I/IV diastolic dysfunction (abnormal relaxation filling pattern), normal to mildly elevated filling pressures. Trace tricuspid valve regurgitation. Estimated pulmonary artery peak systolic pressure within normal limits. There is no pericardial effusion. There are no intracardiac masses. Compared to the previous study from 04/29/2020, there is significant improvement of the LV ejection fraction-from 38% to 64%. Dr Shelley Cormier MD FAC (Electronically Signed) Final Date: 07 January 2022 08:51 S
== END 2022-01-06 12:07 | disposition home or self-care (01) ==
LOC: RAD 12:07
PROVIDERS: PCP Family Medicine; Visit Provider Internal Medicine Cardiovascular Disease
DX: R06.00 Dyspnea, unspecified (principal); I50.20 Unspecified systolic (congestive) heart failure
CPT/HCPCS: 93306

== ENCOUNTER → 2022-01-13 13:45 | Outpatient (BNVA) | payer OTHER, SELFPAY | PROVIDERS: PCP Family Medicine; Visit Provider Nurse Practitioner Family | DX: I25.119 Atherosclerotic heart disease of native coronary artery with unspecified angina pectoris (principal); Z87.891 Personal history of nicotine dependence; I11.0 Hypertensive heart disease with heart failure; I50.20 Unspecified systolic (congestive) heart failure | CPT/HCPCS: 99214 ==

== ENCOUNTER 2022-04-03 09:13 | Emergency (ER) | payer OTHER, SELFPAY ==
--- NOTE | 2022-04-03 09:19 | XRR_ITS ---
PROCEDURE INFORMATION: Exam: XR Chest Exam date and time: 04/03/2022 9:23 AM Age: 77 years old Clinical indication: Pain; Chest pressure; Prior surgery; Surgery type: Stents; Additional info: Cp TECHNIQUE: Imaging protocol: Radiologic exam of the chest. Views: 1 view. COMPARISON: CR XR chest 1V portable [id number] 01/31/2021 1:49 PM FINDINGS: Lungs: There are mild interstitial lung changes present peripherally in the lower lung zones stable from previous exam and suggestive of idiopathic interstitial lung disease (NSIP). Remaining lung salas aerated and clear. No acute infiltrates or overt CHF. Pleural spaces: Unremarkable. No pleural effusion. No pneumothorax. Heart/Mediastinum: Unremarkable. No cardiomegaly. Bones/joints: Unremarkable for age. XR/XR chest 1V portable [id number] IMPRESSION: Stable chronic interstitial lung changes lower lung zones otherwise negative chest.
[2022-04-03 09:20] VITALS: BP 129/86; PULSE 73; RESP 18; TEMP 37.1; O2SAT 96; BMI 24.5
--- NOTE | 2022-04-03 09:21 | ED_ITS ---
HPI - Chest Pain General: Chief Complaint: Chest Pain Stated Complaint: [facility], [facility] Time Seen by Provider: 04/03/22 09:19 Source: patient Mode of arrival: ambulatory Limitations: no limitations History of Present Illness: 77-year-old male states he been having chest pain over the last 4 months he states he had a mammogram and ultrasound to his left breast and has been having a sharp pain since then he states pain is in his left chest really left chest wall its much worse with palpation and movement states his today's pain is actually better than it typically is its been constant for 4 months he rates his pain a 2 out of 10 currently denies any shortness of breath denies any diaphoresis. Associated symptoms: Deny abdominal pain, dyspnea, fever(s), nausea or vomiting Review of Systems Const: Denies: fever(s), chills, body aches or change in appetite Eyes: Denies: blurry vision or eye discomfort ENMT: Denies: throat pain or dental pain Card: Reports: chest pain Resp: Denies: dyspnea GI: Denies: abdominal pain, nausea, vomiting or diarrhea : Denies: dysuria Musc: Denies: neck pain or back pain Skin/Breast: Denies: rash Neuro: Denies: headache(s) Psych: Denies: depression Jacob/Lymph: Denies: easy bruising All/Imm: Denies: urticaria PFSH ED PFSH: Medical History Carcinoma of prostate Coronary artery disease History of anxiety History of posttraumatic stress disorder (PTSD) Hx of agent [place] exposure Hx of chest pain Hx of emphysema Hx of esophageal reflux Hx of essential hypertension Hx of hyperlipidemia Hx of malignant neoplasm of tonsil Hx of peripheral vascular disease Hx of type 2 diabetes mellitus Hypochondriasis Shortness of breath on exertion Systolic congestive heart failure with reduced left ventricular function, NYHA class 3 Surgical History History of bilateral knee replacement History of prostate surgery Hx of carpal tunnel repair Hx of neck surgery Family History Mother CAD (coronary artery disease) Aortic aneurysm Family/Other Stroke Denies family history of Diabetes Clotting disorder Dementia Chronic kidney disease (CKD) Suicide Anesthesia complication Bleeding disorder Lung disease Cancer Social History Smoking and tobacco status: former smoker Alcohol intake: never Physical Exam Const: COMMON NORMALS: no acute distress, patient oriented x3 and healthy appearing HENMT: COMMON NORMALS: normocephalic and atraumatic HEAD & SCALP: normocephalic and atraumatic Eye: COMMON NORMALS: Equal, round and reactive pupils present and EOMs intact bilaterally PUPIL: Yes Equal, round and reactive pupils present Neck/C-Spine: COMMON NORMALS: full ROM and supple Chest: COMMONS NORMALS: normal inspection of the chest OTHER: point tender to left chest Resp: COMMON NORMALS: normal respiratory effort, No retractions, No use of accessory muscles and clear to auscultation bilaterally AUSCULTATION: clear to auscultation bilaterally Cardio: COMMON NORMALS: regular rate, regular rhythm and No murmurs present (Cardio) RATE: regular rate RHYTHM: regular rhythm GI: COMMON NORMALS: Normal to inspection, nondistended, normoactive bowel sounds present, Soft to palpation, non-tender and no masses PALPATION: Yes Soft to palpation Extremity: COMMON NORMALS: normal to inspection and full ROM Neuro: COMMON NORMALS: patient oriented x3, moves all extremities and no focal motor deficits Psych: COMMON NORMALS: mental status grossly normal, Normal thought process present and cooperative THOUGHT PROCESS: Normal thought process present Skin: COMMON NORMALS: no rashes or lesions noted and no wounds GENERAL SKIN EXAM: no rashes or lesions noted Course Vital Signs: Vital signs: Vital Signs Temperature 98.8 F 04/03/22 09:20 Pulse Rate 67 04/03/22 11:41 Respiratory Rate 16 04/03/22 11:41 Blood Pressure 119/62 04/03/22 11:41 Pulse Oximetry 96 04/03/22 11:41 Oxygen Delivery Me thod 04/03/22 10:24 MDM - Chest Pain Medical Decision Making Patient presents here with chest pains likely chest wall pain and these point tenderness chest blood work here is normal with a -2-hour troponin patient is stable here in stable for discharge he is to follow-up with PCP and return if worsening. Lab Data 04/03/22 09:40 04/03/22 09:40 Radiology Impressions Chest X-Ray 04/03/22 09:19 IMPRESSION: Stable chronic interstitial lung changes lower lung zones otherwise negative chest. Laboratory Results WBC 7.4 10^3/uL (4.0-10.0) 04/03/22 09:40 RBC 4.48 10^6/uL (4.1-5.3) 04/03/22 09:40 Hgb 14.7 g/dL (11.7-16.6) 04/03/22 09:40 Hct 45.0 % (42.0-52.0) 04/03/22 09:40 MCV 100.4 fl (80-94) H 04/03/22 09:40 MCH 32.8 pg (28.0-34.0) 04/03/22 09:40 MCHC 32.7 g/dL (30.0-36.0) 04/03/22 09:40 RDW 12.4 % (12.1-15.1) 04/03/22 09:40 Plt Count 257 10^3/cmm (130-400) 04/03/22 09:40 MPV 9.5 fL (7.4-10.4) 04/03/22 09:40 Neut % (Auto) 72.2 % 04/03/22 09:40 Lymph % (Auto) 17.2 % 04/03/22 09:40 Hinds % (Auto) 5.8 % 04/03/22 09:40 Eos % (Auto) 4.1 % 04/03/22 09:40 Baso % (Auto) 0.4 % 04/03/22 09:40 Neut # (Auto) 5.35 10^3/uL (1.8-7.7) 04/03/22 09:40 Lymph # (Auto) 1.3 10^3/uL (0.8-4.8) 04/03/22 09:40 Hinds # (Auto) 0.4 10^3/uL (0.2-0.9) 04/03/22 09:40 Eos # (Auto) 0.3 10^3/uL (0.0-0.8) 04/03/22 09:40 Baso # (Auto) 0.0 10^3/uL (0.0-0.1) 04/03/22 09:40 Nucleated RBC % (auto) 0 % 04/03/22 09:40 Nucleated RBCs # 0.0 /100WBC 04/03/22 09:40 PT 14.10 SECONDS (12.1-14.9) 04/03/22 09:40 INR 1.05 (0.8-1.2) 04/03/22 09:40 Sodium 141 mmol/L (136-145) 04/03/22 09:40 Potassium 4.1 mmol/L (3.5-5.1) 04/03/22 09:40 Chloride 102 mmol/L (98-107) 04/03/22 09:40 Carbon Dioxide 23 mmol/L (22-29) 04/03/22 09:40 Anion Gap 20.1 (5-19) H 04/03/22 09:40 BUN 18 mg/dL (8-23) 04/03/22 09:40 Creatinine 0.9 mg/dL (0.7-1.2) 04/03/22 09:40 GFR Calculation Not Reportable 04/03/22 09:40 Glucose 152 mg/dL (65-115) H 04/03/22 09:40 Calculated Osmolality 297 mOsm/kg (285-295) H 04/03/22 09:40 Calcium 9.6 mg/dL (8.5-10.5) 04/03/22 09:40 Total Bilirubin 0.5 mg/dL (0.15-1.2) 04/03/22 09:40 AST 13 U/L (0-40) 04/03/22 09:40 ALT 10 U/L (0-41) 04/03/22 09:40 Alkaline Phosphatase 183 U/L (40-130) H 04/03/22 09:40 Troponin T Baseline 30 ng/L (0-15) H 04/03/22 09:40 Troponin T 120 Minute 26.99 ng/L (0-15) H 04/03/22 11:28 Delta Troponin T -3.01 ABS# (0-10) L 04/03/22 11:28 Total Protein 7.2 g/dL (6.6-8.7) 04/03/22 09:40 Albumin 4.7 g/dL (3.5-5.2) 04/03/22 09:40 Globulin 2.5 g/dL (1.3-4.6) 04/03/22 09:40 EKG Data EKG 1: I personally reviewed and interpreted this EKG as follows: EKG interpretation date: 04/03/22 EKG interpretation time: 09:29 Interpretation: nsr hr [address] or t wave abnormalities qrs 92 qtc 402 Discharge Plan Discharge Patient Disposition: Home Clinical Impression: Chest pain Condition: Stable Prescriptions: No Action duloxetine 60 mg capsule,delayed release(DR/EC) 60 mg PO DAILY gabapentin 600 mg tablet 600 mg PO BID glipizide 5 mg tablet 5 mg PO BID sertraline 100 mg tablet 100 mg PO QAM metformin 1,000 mg tablet 500 mg PO BID amlodipine 10 mg tablet 10 mg PO DAILY 90 Days Qty: 90 3RF furosemide [Lasix] 40 mg tablet 40 mg PO DAILY Qty: 90 2RF Rx Instructions: Take 60mg daily for 3 days, then reduce to 40mg daily, take with potassium 20mEq daily losartan 100 mg tablet 100 mg PO DAILY 30 Days Qty: 30 5RF clopidogrel 75 mg tablet 75 mg PO DAILY Qty: 90 3RF potassium chloride 20 mEq tablet extended release 20 meq PO DAILY Qty: 30 0RF Rx Instructions: Take 1 tablet by mouth daily x 5 days with Furosemide, then every other day or as needed nitroglycerin [Nitrostat] 0.4 mg tablet, sublingual 0.4 mg sublingual Q5M PRN Rx Instructions: do not exceed 3 doses per episode dexamethasone 6 mg tablet 6 mg PO DAILY Qty: 6 0RF Nightime Pain Relief And Sleep 2 tab PO BEDTIME isosorbide mononitrate 30 mg tablet extended release 24 hr 30 mg PO DAILY Qty: 30 0RF Discharge Orders: Discharge ED (Routine); Ordered 04/03/22 Ordered By: Blanca Walker Referrals: Harika Valente MD [Primary Care Provider] - 1-3 days Discharge Diet: Advance as tolerated Discharge Activity: Resume usual activity Patient Instructions: Chest Pain (ED) Coding Level of Care Code ED Geriatric Nursing Assistant for Chg Fwd Exam Comprehensive
[2022-04-03 09:24] VITALS: BP 116/69; PULSE 73; O2SAT 94
--- NOTE | 2022-04-03 09:29 | ECG_ITS ---
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 Measurements Intervals [place] Rate: 73 P: 81 TX: 175 QRS: 64 QRSD: 92 T: 78 QT: 377 QTc: 416 Interpretive Statements SINUS RHYTHM NONSPECIFIC T-WAVE ABNORMALITY Compared to ECG 04/08/2020 12:55:23 T-wave abnormality now present Ventricular premature complex(es) no longer present Myocardial infarct finding no longer present Electronically Signed On 04-04-2022 11:24:04 WATCH DIAL MAKER by Miah Singer M.D. [id number]
[2022-04-03 10:07] LABS: Basophils % 0.4 %; Eosinophils # 0.3 10^3/uL (0.0-0.8); Eosinophils % 4.1 %; Hemoglobin 14.7 g/dL (11.7-16.6); Lymphocytes # 1.3 10^3/uL (0.8-4.8); Lymphocytes % 17.2 %; Mean Corpuscular HGB Conc 32.7 g/dL (30.0-36.0); Mean Corpuscular Hemoglobin 32.8 pg (28.0-34.0); Mean Corpuscular Volume 100.4 fl (80-94); Mean Platelet Volume 9.5 fL (7.4-10.4); Monocytes # 0.4 10^3/uL (0.2-0.9); Monocytes % 5.8 %; Neutrophils # 5.35 10^3/uL (1.8-7.7); Neutrophils % 72.2 %; Nucleated Red Blood Cells % 0 %; Platelet Count 257 10^3/cmm (130-400); Red Blood Count 4.48 10^6/uL (4.1-5.3); Red Cell Distribution Width 12.4 % (12.1-15.1); White Blood Count 7.4 10^3/uL (4.0-10.0)
[2022-04-03 10:18] LABS: INR 1.05 (0.8-1.2)
[2022-04-03 10:24] VITALS: PULSE 72; O2SAT 94
[2022-04-03 10:28] LABS: Alanine Aminotransferase 10 U/L (0-41); Albumin Level 4.7 g/dL (3.5-5.2); Alkaline Phosphatase 183 U/L (40-130); Anion Gap 20.1 (5-19); Aspartate Amino Transferase 13 U/L (0-40); Blood Urea Nitrogen 18 mg/dL (8-23); Calcium 9.6 mg/dL (8.5-10.5); Carbon Dioxide 23 mmol/L (22-29); Chloride 102 mmol/L (98-107); Globulin 2.5 g/dL (1.3-4.6); Glucose 152 mg/dL (65-115); Osmolality Calculated 297 mOsm/kg (285-295); Potassium 4.1 mmol/L (3.5-5.1); Sodium 141 mmol/L (136-145); Total Bilirubin 0.5 mg/dL (0.15-1.2); Total Protein 7.2 g/dL (6.6-8.7)
[2022-04-03 10:30] LABS: Troponin(5th) Baseline 30 ng/L (0-15)
[2022-04-03 11:06] VITALS: BP 114/64; PULSE 61; RESP 19; O2SAT 94
--- NOTE | 2022-04-03 11:22 | ECG_ITS ---
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 Measurements Intervals [place] Rate: 57 P: 63 ND: 174 QRS: 25 QRSD: 90 T: 70 QT: 436 QTc: 428 Interpretive Statements SINUS BRADYCARDIA WITH OCCASIONAL VENTRICULAR PREMATURE COMPLEXES NONSPECIFIC T-WAVE ABNORMALITY Compared to ECG 04/03/2022 09:29:43 Ventricular premature complex(es) now present Sinus rhythm no longer present T-wave abnormality still present Electronically Signed On 04-04-2022 11:34:24 DINING SERVICES DIRECTOR by Miah Singer M.D. [id number]
[2022-04-03 11:41] VITALS: BP 119/62; PULSE 67; RESP 16; O2SAT 96
[2022-04-03 12:03] LABS: Troponin 5 2HR 26.99 ng/L (0-15)
[2022-04-03 12:16] LABS: Troponin 5 2HR Delta -3.01 ABS# (0-10)
[2022-04-03 12:37] VITALS: BP 122/66; PULSE 61; O2SAT 94
== END 2022-04-03 12:38 | disposition home or self-care (01) ==
PROVIDERS: Emergency Provider Emergency Medicine; PCP Family Medicine
DX: R07.9 Chest pain, unspecified (principal); Z79.02 Long term (current) use of antithrombotics/antiplatelets; Z79.84 Long term (current) use of oral hypoglycemic drugs; I25.10 Atherosclerotic heart disease of native coronary artery without angina pectoris; J43.9 Emphysema, unspecified; E78.5 Hyperlipidemia, unspecified; E11.9 Type 2 diabetes mellitus without complications; I11.0 Hypertensive heart disease with heart failure; I50.20 Unspecified systolic (congestive) heart failure; Z85.89 Personal history of malignant neoplasm of other organs and systems; Z85.46 Personal history of malignant neoplasm of prostate; Z87.891 Personal history of nicotine dependence
CPT/HCPCS: 71045; 80053; 84484; 85025; 85610; 93005; 99285

== ENCOUNTER 2022-06-23 07:46 | Outpatient (CLI) | payer OTHER, SELFPAY ==
--- NOTE | 2022-06-23 07:56 | CT_ITS ---
WS: [id number] CT chest w con* [id number] HISTORY: LEFT CHEST PAIN. EX SMOKER. TECHNIQUE: Axial imaging performed through the thorax. Coronal and sagittal reformats are submitted. All CT scans at [facility] use at least one of these dose optimization techniques: automated exposure control; mA and/or kV adjustment per patient size (includes targeted exams where dose is mat ched to clinical indication); or iterative reconstruction. CONTRAST: Omnipaque 350; 100 mL IV. DLP: 348.09 mGy.cm COMPARISON: None available. Lungs and central airway: Hyperinflated lungs with chronic emphysema. Reticular thickening greatest i n the lower lung salas with a few areas of tree-in-bud airspace disease. Pleura: Normal. No pleural effusion. Heart and pericardium: Normal size heart with no pericardial effusion. Mediastinum and ken: No mediastinum or hilar adenopathy. Small amount of mucus in the trachea. Vessels: Mild atherosclerosis aorta. No aneurysm. Normal size pulmonary artery. Chest wall and lower neck: No soft tissue masses. Upper abdomen: Small hiatal hernia. Well-circumscribed 17 mm LEFT adrenal mass noted on a prior CT fr om 2020. No increase in size and most consistent with an adenoma. Normal RIGHT adrenal gland. Osseous structures: Osteopenia. CT/CT chest w con* [id number] IMPRESSION: 1. Chronic emphysema, severe. 2. Bilateral lower lobe areas of interstitial thickening and tree-in-bud airsp sylvia disease. Probably representing pneumonitis or aspiration pneumonia. 3. No LEFT chest wall abnormality in the area of pain. 4. Atherosclerosis aorta. 5. No mediastinal or hilar adenopathy. 6. Long-term stability LEFT adrenal mass consistent with an adenoma.
[2022-06-23 08:37] LABS: Blood Urea Nitrogen 13 mg/dL (8-23)
[2022-06-23] MEDS: iohexol 350 mg/mL 500 mL Btl (per mL) IV (08:45)
== END 2022-06-23 07:47 | disposition home or self-care (01) ==
LOC: RAD 07:49
PROVIDERS: PCP Family Medicine; Visit Provider Family Medicine
DX: R07.9 Chest pain, unspecified (principal); Z87.891 Personal history of nicotine dependence; Z85.01 Personal history of malignant neoplasm of esophagus; I25.10 Atherosclerotic heart disease of native coronary artery without angina pectoris; E11.9 Type 2 diabetes mellitus without complications; J43.9 Emphysema, unspecified
CPT/HCPCS: 71260; 82565; 84520; Q9967

== ENCOUNTER 2022-08-14 08:58 | Emergency (ER) | payer OTHER, SELFPAY ==
[2022-08-14 09:00] VITALS: BP 179/104; PULSE 56; RESP 15; O2SAT 97
--- NOTE | 2022-08-14 09:08 | XRR_ITS ---
PROCEDURE INFORMATION: Exam: XR Right Foot Exam date and time: 08/14/2022 9:18 AM Age: 77 years old Clinical indication: Injury or trauma; Fall; Blunt trauma; Foot and toes; Right lesser toe(s) TECHNIQUE: Imaging protocol: Radiologic exam of the right foot. Views: 3 or more views. COMPARISON: No relevant prior studies available. FINDINGS: Bones/joints: There is osteoarthritis with narrowing and sclerosis with remodeling of the 1st metatarsophalangeal articulation. No acute bony abnormalities seen. A bone spurs present on the inferior calcaneus. Scattered sclerotic densities seen in the midfoot Soft tissues: Normal. XR/XR foot RT min 3V* [id number] IMPRESSION: No acute findings. Osteoarthritis Bone spur inferior calcaneus
--- NOTE | 2022-08-14 09:08 | XRR_ITS ---
PROCEDURE INFORMATION: Exam: XR Left Foot Exam date and time: 08/14/2022 9:16 AM Age: 77 years old Clinical indication: Injury or trauma; Fall; Blunt trauma and laceration; Foot and toes; Left; Without foreign body TECHNIQUE: Imaging protocol: Radiologic exam of the left foot. Views: 3 or more views. COMPARISON: No relevant prior studies available. FINDINGS: Bones/joints: There is hallux valgus deformity of the 5th digit. Negative for acute bony abnormality. Bone spur inferior calcaneus there is a cortical lucency traversing the midshaft aspect of the distal phalange of the great toe. this finding may represent a chronic injury Soft tissues: Normal. XR/XR foot LT min 3V* [id number] IMPRESSION: 1. No acute findings. 2. Hallux valgus deformity 5th toe 3. A bone spur inferior calcaneus 4. Transverse lucency distal phalange great toe
--- NOTE | 2022-08-14 09:10 | ED_ITS ---
HPI - Wound/Laceration General: Chief Complaint: Wound/Laceration Stated Complaint: fall, left big toe lac Time Seen by Provider: 08/14/22 09:01 Source: patient Mode of arrival: ambulatory History of Present Illness: 77-year-old male presents emergency room with complaint of laceration to his left great toe. He caught his toe on something as he is walking and sustained a significant laceration. Day prior he had stubbed his toes on his right foot has some pain there as well. He is not entirely sure of his last tetanus shot. Onset (ago): minute(s) Extremity Location: Bilateral: foot Place: home Context: accidental Associated symptoms: Reports pain; Denies chills, fever(s), foreign body sensation, nausea or numbness Treatments prior to arrival: bandage Review of Systems Const: Denies: fever(s) or chills Card: Denies: chest pain GI: Denies: abdominal pain or nausea PFSH ED PFSH: Medical History Carcinoma of prostate Coronary artery disease History of anxiety History of posttraumatic stress disorder (PTSD) Hx of agent [place] exposure Hx of chest pain Hx of emphysema Hx of esophageal reflux Hx of essential hypertension Hx of hyperlipidemia Hx of malignant neoplasm of tonsil Hx of peripheral vascular disease Hx of type 2 diabetes mellitus Hypochondriasis Shortness of breath on exertion Systolic congestive heart failure with reduced left ventricular function, NYHA class 3 Surgical History History of bilateral knee replacement History of prostate surgery Hx of carpal tunnel repair Hx of neck surgery Family History Mother CAD (coronary artery disease) Aortic aneurysm Family/Other Stroke Denies family history of Diabetes Clotting disorder Dementia Chronic kidney disease (CKD) Suicide Anesthesia complication Bleeding disorder Lung disease Cancer Social History Smoking and tobacco status: former smoker Alcohol intake: never Substance/Drug Use: never Physical Exam Const: COMMON NORMALS: no acute distress GENERAL APPEARANCE: cooperative and comfortable ORIENTATION/CONSCIOUSNESS: Yes awake, Yes oriented to person, Yes oriented to place and Yes oriented to time HENMT: COMMON NORMALS: normocephalic, atraumatic and hearing grossly normal bilaterally HEAD & SCALP: normocephalic and atraumatic Extremity: OTHER: Full-thickness laceration across the dorsum of the left great toe approximately 2 inches in length disrupt the nailbed proximally Neuro: SENSORIUM/ORIENTATION: Yes oriented to person, Yes oriented to place and Yes oriented to time Skin: COMMON NORMALS: no rashes or lesions noted GENERAL SKIN EXAM: no rashes or lesions noted Procedures Laceration Laceration 1: Site: lower extremity (Left great toe) Side (If applicable): left Size (cm): 6 Description: linear and other (Avulsion of the proximal portion of the nail from the matrix) Depth: simple, single layer Pre-repair: irrigated extensively Skin layer closed with: nylon Size (cm): 3-0 Number of sutures: 6 Technique: simple, interrupted and other (Nail trephinated proximally on the left and the right single interrupted suture secured the nail back into the matrix.) Nerve Block Nerve Block 1: Time out performed: Yes Local Anesthetic: lidocaine 1% Amount of anesthesia used (mL): 4 Side: left (Left great toe) Nerve Blocks: digital Procedure Successful: Yes Patient Tolerated Procedure: well Complications: none Course Vital Signs: Vital signs: Vital Signs Pulse Rate 53 L 08/14/22 11:37 Respiratory Rate 16 08/14/22 11:37 Blood Pressure 187/100 08/14/22 11:37 Pulse Oximetry 96 08/14/22 11:37 Oxygen Delivery Me thod Room Air 08/14/22 09:00 MDM - Wound/Laceration Medical Decision Making Skin edges approximated lateral to the nail and medial to the nail. The nail root had been torn off the matrix. The nail was trephinated and 2 single sutures of 3-0 nylon used to attempt to secure it back into the matrix. There is already a moderate amount of swelling is difficult to see to back completely. Wound care instructions given wound bandaged tetanus has been updated with a tetanus diphtheria. Pain medications given for Augmentin 500 3 times daily for 5 days. Case management make arrangements for follow-up with podiatry. Lab Data Radiology Impressions Foot X-Ray 08/14/22 09:08 IMPRESSION: 1. No acute findings. 2. Hallux valgus deformity 5th toe 3. A bone spur inferior calcaneus 4. Transverse lucency distal phalange great toe Foot X-Ray 08/14/22 09:08 IMPRESSION: No acute findings. Osteoarthritis Bone spur inferior calcaneus Discharge Plan Discharge Patient Disposition: Home Clinical Impression: Laceration, Avulsed toenail Condition: Stable Prescriptions: New Augmentin 500-125 mg tablet 1 tab PO TID Qty: 15 0RF hydrocodone-acetaminophen 5-325 mg tablet 1 tab PO Q6H PRN (Reason: pain) Qty: 10 0RF No Action duloxetine 60 mg capsule,delayed release(DR/EC) 60 mg PO DAILY gabapentin 600 mg tablet 600 mg PO BID glipizide 5 mg tablet 5 mg PO BID sertraline 100 mg tablet 100 mg PO QAM metformin 1,000 mg tablet 500 mg PO BID amlodipine 10 mg tablet 10 mg PO DAILY 90 Days Qty: 90 3RF furosemide [Lasix] 40 mg tablet 40 mg PO DAILY Qty: 90 2RF Rx Instructions: Take 60mg daily for 3 days, then reduce to 40mg daily, take with potassium 20mEq daily losartan 100 mg tablet 100 mg PO DAILY 30 Days Qty: 30 5RF clopidogrel 75 mg tablet 75 mg PO DAILY Qty: 90 3RF potassium chloride 20 mEq tablet extended release 20 meq PO DAILY Qty: 30 0RF Rx Instructions: Take 1 tablet by mouth daily x 5 days with Furosemide, then every other day or as needed nitroglycerin [Nitrostat] 0.4 mg tablet, sublingual 0.4 mg sublingual Q5M PRN Rx Instructions: do not exceed 3 doses per episode dexamethasone 6 mg tablet 6 mg PO DAILY Qty: 6 0RF Nightime Pain Relief And Sleep 2 tab PO BEDTIME isosorbide mononitrate 30 mg tablet extended release 24 hr 30 mg PO DAILY Qty: 30 0RF Discharge Orders: Discharge ED (Routine); Ordered 08/14/22 Ordered By: Herber Lino Referrals: Harika Valente MD [Primary Care Provider] - Discharge Diet: Usual diet Discharge Activity: Limit activity as instructed Patient Instructions: Opioid Safety, Pain Management Activity Restrictions/Additional Instructions: You are seen today for laceration of the toe including a partial avulsion of the left great toenail. Ice to the area of to decrease swelling and throbbing, you can also use pain medications provided. Antibiotic 1 pill 3 times a day for 5 days. Case management make arrangements for follow-up with podiatry. Coding Level of Care Code ED Latex Foam Worker for Mariaelena Delgado
[2022-08-14] MEDS: tetanus-diphtheria tox (adult) 0.5 mL SDV IM (09:59)
[2022-08-14 11:37] VITALS: BP 187/100; PULSE 53; RESP 16; O2SAT 96
--- NOTE | 2022-08-16 08:30 | DCPLANNER ---
Addendum entered by Delia Gardner 09/10/22 10:45: Patient had a follow up appointment scheduled with ortho - patient did attend appointment. Addendum entered by Delia Gardner 08/22/22 08:57: Patient has a follow up appointment scheduled for Tuesday, August 25, 2022 at 3:[address] Richardson at ortho. Original Note: shipping receiving manager had message to schedule a follow up appointment for patient with podiatry. shipping receiving manager sent patients to the front office staff at podiatry. Patients information will be printed and reviewed. Clinic will call patient with appointment information.
== END 2022-08-14 11:40 | disposition home or self-care (01) ==
PROVIDERS: Emergency Provider Family Medicine; PCP Family Medicine
DX: S91.212A Laceration without foreign body of left great toe with damage to nail, initial encounter (principal); W22.8XXA Striking against or struck by other objects, initial encounter; Z85.46 Personal history of malignant neoplasm of prostate; Z85.89 Personal history of malignant neoplasm of other organs and systems; I25.10 Atherosclerotic heart disease of native coronary artery without angina pectoris; J43.9 Emphysema, unspecified; I11.0 Hypertensive heart disease with heart failure; I50.20 Unspecified systolic (congestive) heart failure; E11.9 Type 2 diabetes mellitus without complications; E78.5 Hyperlipidemia, unspecified; Z87.891 Personal history of nicotine dependence; Z23 Encounter for immunization; Z79.84 Long term (current) use of oral hypoglycemic drugs
CPT/HCPCS: 12002; 73630; 90471; 90714; 99283; A6446

== ENCOUNTER → 2022-08-25 15:31 | Outpatient (BNVA) | payer OTHER, SELFPAY | PROVIDERS: PCP Family Medicine; Visit Provider Podiatrist Foot & Ankle Surgery | DX: E11.65 Type 2 diabetes mellitus with hyperglycemia (principal); S91.312A Laceration without foreign body, left foot, initial encounter; X58.XXXA Exposure to other specified factors, initial encounter; Z79.84 Long term (current) use of oral hypoglycemic drugs | CPT/HCPCS: 99203 ==

== ENCOUNTER 2022-11-04 09:18 | Outpatient (CLI) | payer OTHER, SELFPAY ==
--- NOTE | 2022-11-04 09:32 | MR_ITS ---
WS: [id number] MRI CERVICAL SPINE NONCONTRAST TECHNIQUE: Sagittal T1, T2 and STIR imaging. Axial T2, gradient, and fiesta imaging. CLINICAL INFORMATION: NECK PAIN COMPARISON: None. FINDINGS: Straightening of the normal cervical lordosis. Mild spondylitic changes. Small central protrusions at C5-C6 and C6-C7. Cord signal is normal. C2-C3: Mild facet arthropathy. Mild RIGHT foraminal narrowing. C3-C4: Mild disc bulging with moderate facet arthropathy. Moderate to severe LEFT bony foraminal narr owing. Mild RIGHT bony foraminal narrowing. Spinal canal is patent. C4-C5: Disc osteophyte complex with endplate ridging. Severe RIGHT and mild to moderate LEFT bony for aminal narrowing. Moderate facet arthropathy. C5-C6: Disc osteophyte protrusion with slight contact of the cervical cord. Moderate to advanced face t arthropathy. Moderate to severe LEFT bony foraminal narrowing. Mild RIGHT foraminal narrowing. C6-C7: Disc osteophyte protrusion with slight contact of the cervical cord. Mild central canal stenos is. Moderate facet arthropathy. Moderate LEFT and mild RIGHT bony foraminal narrowing. C7-T1: Mild LEFT and no significant RIGHT foraminal narrowing. Spinal canal is patent. Visualized brain stem structures: Normal. Prevertebral soft tissues: Normal. IMPRESSION: 1. Mild central canal stenosis C6-7 with central disc protrusion and slight contact of the cervical cord. 2. Moderate to severe bony foraminal narrowing worse at LEFT C3-4, RIGHT C4-5, LEFT C5-6, and LEFT C 6-7. 3. Multilevel moderate to advanced facet arthropathy worse at LEFT C3-C4 with a small amount of ama articular edema. 4. Moderate to advanced arthropathy C4-C5 and C5-C6.
== END 2022-11-04 09:19 | disposition home or self-care (01) ==
PROVIDERS: PCP Family Medicine; Visit Provider Family Medicine
DX: M48.02 Spinal stenosis, cervical region (principal); M47.812 Spondylosis without myelopathy or radiculopathy, cervical region
CPT/HCPCS: 72141

== ENCOUNTER → 2023-02-14 09:58 | Outpatient (BNVA) | payer OTHER, SELFPAY | PROVIDERS: PCP Family Medicine; Visit Provider Podiatrist Foot & Ankle Surgery | DX: E11.65 Type 2 diabetes mellitus with hyperglycemia (principal); M79.672 Pain in left foot; I73.9 Peripheral vascular disease, unspecified; Z79.84 Long term (current) use of oral hypoglycemic drugs | CPT/HCPCS: 99213 ==

== ENCOUNTER 2023-03-22 09:25 | Outpatient (CLI) | payer OTHER, SELFPAY ==
--- NOTE | 2023-03-22 09:30 | USCV_ITS ---
Nico Saenz Age: 78 Gender: M : 1945 Exam Date: 03/22/2023 10:29 Ordering Phys: Masoud Richardson DPM Technologist: Helen Ross Paraffiner Exam Location: [facility] [place] Indication: LEG PAIN RIGHT LEFT Brachial 119.00 mmHg Brachial 128.00 mmHg Pressure (mmHg) Waveform Pressure (mmHg) Waveform 160.00 High Thigh 166.00 168.00 Below Knee 162.00 163.00 PERSONALIZED LIVING MANAGER NURSE 168.00 142.00 DPA 153.00 1.27 Ankle/Brachial Index 1.31 142.00 Pre-Exercise Toe Pressure 182.00 Pre-Exercise Toe/Brachial Index 1.40 1.10 FINDINGS Resting MAISHA 1.27 on the right side and 1.31 on the left side Resting TBI of 1.1 on the right and 1.4 on the left Normal PVR waveforms CONCLUSIONS Normal resting ABIs and TBIs bilaterally. No significant arterial obstruction, based on the above findings Dr Shelley Cormier MD [facility] (Electronically Signed) Final Date: 22 March 2023 19:31 S
== END 2023-03-22 09:26 | disposition home or self-care (01) ==
LOC: RAD 09:26
PROVIDERS: PCP Family Medicine; Visit Provider Podiatrist Foot & Ankle Surgery
DX: I73.9 Peripheral vascular disease, unspecified (principal)
CPT/HCPCS: 93923

== ENCOUNTER → 2023-05-25 13:48 | Outpatient (BNVA) | payer OTHER, SELFPAY | PROVIDERS: PCP Family Medicine; Referring Provider Family Medicine; Visit Provider Dermatology | DX: D48.5 Neoplasm of uncertain behavior of skin (principal); L72.0 Epidermal cyst; L57.0 Actinic keratosis; D18.01 Hemangioma of skin and subcutaneous tissue; L91.8 Other hypertrophic disorders of the skin; D23.71 Other benign neoplasm of skin of right lower limb, including hip; Z85.828 Personal history of other malignant neoplasm of skin | CPT/HCPCS: 11102; 17000; 99203 ==

== ENCOUNTER → 2023-06-23 07:49 | Outpatient (BNVA) | payer OTHER, SELFPAY | PROVIDERS: PCP Family Medicine; Visit Provider Dermatology | DX: C44.319 Basal cell carcinoma of skin of other parts of face (principal); C44.41 Basal cell carcinoma of skin of scalp and neck | CPT/HCPCS: 12032; 14040; 17311 ==

== ENCOUNTER → 2023-06-30 07:55 | Outpatient (BNVA) | payer OTHER, SELFPAY | PROVIDERS: PCP Family Medicine; Visit Provider Dermatology | DX: C44.319 Basal cell carcinoma of skin of other parts of face (principal); C44.41 Basal cell carcinoma of skin of scalp and neck | CPT/HCPCS: 12032; 13132; 17272; 17311 ==

== ENCOUNTER → 2023-07-11 09:23 | Outpatient (BNVA) | payer OTHER, SELFPAY | PROVIDERS: PCP Family Medicine; Visit Provider Dermatology | DX: Z48.02 Encounter for removal of sutures (principal) | CPT/HCPCS: 99212 ==

== ENCOUNTER 2023-08-03 11:06 | Emergency (ER) | payer OTHER, MEDICARE, SELFPAY ==
[2023-08-03 12:05] VITALS: BP 139/78; PULSE 61; RESP 18; TEMP 36.7; O2SAT 97; BMI 26.2
[2023-08-03 14:33] LABS: Basophils % 0.6 %; Eosinophils # 0.3 10^3/uL (0.0-0.8); Eosinophils % 4.7 %; Hematocrit 47.1 % (37-53); Lymphocytes # 1.6 10^3/uL (0.8-4.8); Lymphocytes % 22.4 %; Mean Corpuscular HGB Conc 32.7 g/dL (30-55); Mean Corpuscular Hemoglobin 32.9 pg (27-33); Mean Corpuscular Volume 100.6 fl (82-101); Mean Platelet Volume 9.1 fL (7.4-10.4); Monocytes # 0.6 10^3/uL (0.2-0.9); Monocytes % 7.6 %; Neutrophils # 4.69 10^3/uL (1.8-7.7); Neutrophils % 64.4 %; Nucleated Red Blood Cells % 0 %; Platelet Count 249 10^3/cmm (157-399); Red Blood Count 4.68 10^6/uL (3.85-5.65); Red Cell Distribution Width 12.7 % (12.1-15.1); White Blood Count 7.27 10^3/uL (3.29-11.43)
--- NOTE | 2023-08-03 14:50 | ED_ITS ---
HPI - General Adult 2 General: Chief complaint: General Medical Stated complaint: Bitten by bug, body numbess Time Seen by Provider: 08/03/23 14:30 Source: patient Mode of arrival: ambulatory History of Present Illness: 78-year-old male presents emergency room states that 4 days ago he was mowing the lawn he felt the bug fall off of a tree as he drove underneath it and it bit him on his left hand between the third and fourth fingers. (He had told the nurse know it happened the day prior he told me that it happened 4 days ago.) He states shortly after that he began to have numbness bilaterally in all of his extremities. He never had any difficulty breathing is not had any rashes a few bruises at the site where he said he was bitten but there is no eschar present no localized edema. He states the numbness and tingling is better than it was 4 days ago but still present. He states he had a similar episode like this several years ago when he had heat exhaustion. He denies chest pain or abdominal pain. Onset (ago): day(s) Location: left and upper extremity Relieving factors: none Exacerbating factors: none Associated symptoms: Deny chest pain, confusion, cough, diaphoresis, decreased appetite, dyspnea, fevers/chills, headache(s), malaise, nausea, rash, palpitations, seizures, short of breath, syncope, vomiting or weakness Review of Systems 2 Const: Denies: fever(s), chills, fatigue, malaise or diaphoresis Card: Denies: chest pain, palpitations or syncope Resp: Denies: dyspnea GI: Denies: abdominal pain, nausea or vomiting : Denies: dysuria, urinary frequency or urinary urgency Skin/Breast: Denies: rash Neuro: Denies: headache(s) or confusion PFSH ED 2 PFSH: Medical History Systolic congestive heart failure with reduced left ventricular function, NYHA class 3 Coronary artery disease History of posttraumatic stress disorder (PTSD) Hx of peripheral vascular disease Shortness of breath on exertion Hx of chest pain Hypochondriasis Hx of type 2 diabetes mellitus History of anxiety Carcinoma of prostate Hx of esophageal reflux Hx of emphysema Hx of hyperlipidemia Hx of essential hypertension Hx of malignant neoplasm of tonsil Hx of agent [place] exposure Surgical History History of prostate surgery Hx of carpal tunnel repair History of bilateral knee replacement Hx of neck surgery Family History Mother CAD (coronary artery disease) Aortic aneurysm Family/Other Stroke Denies family history of Diabetes Clotting disorder Dementia Chronic kidney disease (CKD) Suicide Anesthesia complication Bleeding disorder Lung disease Cancer Social History Smoking and tobacco/nicotine status: former use of tobacco/nicotine Alcohol intake: never Substance/Drug Use: never Course 2 Vital Signs: Vital signs: Vital Signs Temperature 98.1 F 08/03/23 12:05 Pulse Rate 86 08/03/23 16:29 Respiratory Rate 18 08/03/23 12:05 Blood Pressure 135/86 08/03/23 17:44 Pulse Oximetry 94 08/03/23 16:29 Oxygen Delivery Me thod Room Air 08/03/23 12:05 [facility] - General Adult Medical Decision Making CT of the head is negative. He has no focal findings on exam. Sensation is normal at this time. He is on clopidogrel will add aspirin and atorvastatin set him up for an outpatient MRI and follow-up with neurology. Medical Records I reviewed the patient's medical records. Lab Data I reviewed the patient's lab results. 08/03/23 14:20 08/03/23 14:20 Radiology Impressions Chest X-Ray 08/03/23 14:57 IMPRESSION: 1. Chronic interstitial changes in the bilateral lung bases. No acute process noted. Head CT 08/03/23 14:57 IMPRESSION: No acute intracranial findings. Laboratory Results WBC 7.27 10^3/uL (3.29-11.43) 08/03/23 14:20 RBC 4.68 10^6/uL (3.85-5.65) 08/03/23 14:20 Hgb 15.40 g/dL (11.27-16.99) 08/03/23 14:20 Hct 47.1 % (37-53) 08/03/23 14:20 MCV 100.6 fl (82-101) 08/03/23 14:20 MCH 32.9 pg (27-33) 08/03/23 14:20 MCHC 32.7 g/dL (30-55) 08/03/23 14:20 RDW 12.7 % (12.1-15.1) 08/03/23 14:20 Plt Count 249 10^3/cmm (157-399) 08/03/23 14:20 MPV 9.1 fL (7.4-10.4) 08/03/23 14:20 Neut % (Auto) 64.4 % 08/03/23 14:20 Lymph % (Auto) 22.4 % 08/03/23 14:20 [place] % (Auto) 7.6 % 08/03/23 14:20 Eos % (Auto) 4.7 % 08/03/23 14:20 Baso % (Auto) 0.6 % 08/03/23 14:20 Neut # (Auto) 4.69 10^3/uL (1.8-7.7) 08/03/23 14:20 Lymph # (Auto) 1.6 10^3/uL (0.8-4.8) 08/03/23 14:20 [place] # (Auto) 0.6 10^3/uL (0.2-0.9) 08/03/23 14:20 Eos # (Auto) 0.3 10^3/uL (0.0-0.8) 08/03/23 14:20 Baso # (Auto) 0.0 10^3/uL (0.0-0.1) 08/03/23 14:20 Nucleated RBC % (auto) 0 % 08/03/23 14:20 Nucleated RBCs # 0.0 /100WBC 08/03/23 14:20 Sodium 142 mmol/L (136-145) 08/03/23 14:20 Potassium 4.4 mmol/L (3.5-5.1) 08/03/23 14:20 Chloride 102 mmol/L (98-107) 08/03/23 14:20 Carbon Dioxide 30 mmol/L (22-29) H 08/03/23 14:20 Anion Gap 14.4 (5-19) 08/03/23 14:20 BUN 19 mg/dL (8-23) 08/03/23 14:20 Creatinine 1.0 mg/dL (0.7-1.2) 08/03/23 14:20 GFR Calculation Not Reportable 08/03/23 14:20 Glucose 103 mg/dL (65-115) 08/03/23 14:20 POC Glucose 95 mg/dL (70-110) 08/03/23 16:09 Calculated Osmolality 297 mOsm/kg (285-295) H 08/03/23 14:20 Calcium 9.3 mg/dL (8.5-10.5) 08/03/23 14:20 Total Bilirubin 0.4 mg/dL (0.15-1.2) 08/03/23 14:20 AST 18 U/L (0-40) 08/03/23 14:20 ALT 19 U/L (0-41) 08/03/23 14:20 Alkaline Phosphatase 180 U/L (40-130) H 08/03/23 14:20 Total Protein 7.7 g/dL (6.6-8.7) 08/03/23 14:20 Albumin 4.6 g/dL (3.5-5.2) 08/03/23 14:20 Globulin 3.1 g/dL (1.3-4.6) 08/03/23 14:20 Urine Color Yellow (Yellow) 08/03/23 15:11 Urine Appearance Clear (CLEAR) 08/03/23 15:11 Urine pH 5 (5-7) 08/03/23 15:11 Ur Specific [place] 1.015 (1.005-1.030) 08/03/23 15:11 Urine Protein Neg (Negative) 08/03/23 15:11 Urine Glucose (UA) 4+ (Normal) H 08/03/23 15:11 Urine Ketones Negative (Negative) 08/03/23 15:11 Urine Blood Neg (Negative) 08/03/23 15:11 Urine Nitrate Negative (Negative) 08/03/23 15:11 Urine Bilirubin Neg (Negative) 08/03/23 15:11 Urine Urobilinogen Norm mg/dL (Negative) 08/03/23 15:11 Ur Leukocyte Esterase Negative (Negative) 08/03/23 15:11 All radiology interpretation(s) finalized by discharge Discharge Plan Discharge Patient Disposition: Home Clinical Impression: Arm numbness left Condition: Stable Prescriptions: New aspirin 81 mg tablet,delayed release (DR/EC) 81 mg PO DAILY Qty: 30 0RF atorvastatin 40 mg tablet 40 mg PO DAILY Qty: 30 0RF No Action duloxetine 60 mg capsule,delayed release(/EC) 60 mg PO DAILY gabapentin 600 mg tablet 600 mg PO BID glipizide 5 mg tablet 5 mg PO BID sertraline 100 mg tablet 100 mg PO QAM metformin 1,000 mg tablet 500 mg PO BID amlodipine 10 mg tablet 10 mg PO DAILY 90 Days Qty: 90 3RF furosemide [Lasix] 40 mg tablet 40 mg PO DAILY Qty: 90 2RF Rx Instructions: Take 60mg daily for 3 days, then reduce to 40mg daily, take with potassium 20mEq daily losartan 100 mg tablet 100 mg PO DAILY 30 Days Qty: 30 5RF clopidogrel 75 mg tablet 75 mg PO DAILY Qty: 90 3RF potassium chloride 20 mEq tablet extended release 20 meq PO DAILY Qty: 30 0RF Rx Instructions: Take 1 tablet by mouth daily x 5 days with Furosemide, then every other day or as needed nitroglycerin [Nitrostat] 0.4 mg tablet, sublingual 0.4 mg sublingual Q5M PRN Rx Instructions: do not exceed 3 doses per episode dexamethasone 6 mg tablet 6 mg PO DAILY Qty: 6 0RF Nightime Pain Relief And Sleep 2 tab PO BEDTIME isosorbide mononitrate 30 mg tablet extended release 24 hr 30 mg PO DAILY Qty: 30 0RF Augmentin 500-125 mg tablet 1 tab PO TID Qty: 15 0RF hydrocodone-acetaminophen 5-325 mg tablet 1 tab PO Q6H PRN (Reason: pain) Qty: 10 0RF Discharge Orders: Discharge ED (Routine); Ordered 08/03/23 Ordered By: Herber Lino Referrals: Harika Valente MD [Primary Care Provider] - Discharge Diet: Usual diet Discharge Activity: Resume usual activity Patient Instructions: Opioid Safety, Pain Management Activity Restrictions/Additional Instructions: Thank you for choosing [facility] for your healthcare needs today. Please realize this is an emergency room and that we are providing you with a medical screening exam and this may not be complete and all inclusive of all the testing and or work up that you may need to determine your ailment or severity of your illness. It is very important that you follow up as instructed or that you return to the Emergency Department should you have concerns or if your condition changes or worsens in any way. You were seen today for complaints of numbness in your left hand. CT was negative and there is no sign of acute stroke. Recommend discharge on aspirin daily in addition to clopidogrel and also start atorvastatin daily with such up for an MRI of the head and follow-up with neurology Coding Level of Care Code ED Magistrate Judge for Mariaelena Delgado
--- NOTE | 2023-08-03 14:57 | XR_ITS ---
WS: [id number] Exam: XR chest 1V portable [id number] Date/Time of Exam: 08/03/2023 2:59 PM Reason For Exam: dyspnea/cough Comparison 04/03/2022. The lungs are fully expanded. There are chronic interstitial changes in the lower lung zones bilatera lly. No acute infiltrates are noted. No pneumothorax or pleural effusion. Unremarkable cardiomediasti nal silhouette. Bony structures are intact. Degenerative changes of both shoulders. XR/XR chest 1V portable [id number] IMPRESSION: 1. Chronic interstitial changes in the bilateral lung bases. No acute process n oted.
--- NOTE | 2023-08-03 14:57 | CTR_ITS ---
PROCEDURE INFORMATION: Exam: CT Head Without Contrast Exam date and time: 08/03/2023 3:04 PM Age: 78 years old Clinical indication: Numbness / parasthesia; Patient HX: Patient says he was bite by a big on the hand Tuesday and has been experiencing numbness and tingling on left side of body ever since TECHNIQUE: Imaging protocol: Computed tomography of the head without contrast. Radiation optimization: All CT scans at this facility use at least one of these dose optimization techniques: automated exposure control; mA and/or kV adjustment per patient size (includes targeted exams where dose is matched to clinical indication); or iterative reconstruction. COMPARISON: MR cervical spin wo con* [id number] 11/04/2022 9:49 AM RADIATION DOSE METRICS: Total DLP (mGy-cm): 1101 FINDINGS: Brain: No intracranial hemorrhage. There is global parenchymal volume loss. Periventricular white matter hypoattenuation is nonspecific but most likely due to small vessel disease. No evidence of acute territorial infarct or cerebral edema. No mass effect or midline shift. Cerebral ventricles: Prominent ventricles likely secondary to volume loss. Paranasal sinuses: Visualized sinuses are unremarkable. No fluid levels. Mastoid air cells: Visualized mastoid air cells are well aerated. Bones: Unremarkable. No acute fracture. Soft tissues: Unremarkable. CT/CT head wo con* [id number] IMPRESSION: No acute intracranial findings.
[2023-08-03 14:58] LABS: Alanine Aminotransferase 19 U/L (0-41); Albumin Level 4.6 g/dL (3.5-5.2); Alkaline Phosphatase 180 U/L (40-130); Anion Gap 14.4 (5-19); Aspartate Amino Transferase 18 U/L (0-40); Blood Urea Nitrogen 19 mg/dL (8-23); Calcium 9.3 mg/dL (8.5-10.5); Carbon Dioxide 30 mmol/L (22-29); Chloride 102 mmol/L (98-107); Creatinine Clr Calc Pharmacy 64.3384; Globulin 3.1 g/dL (1.3-4.6); Glucose 103 mg/dL (65-115); Osmolality Calculated 297 mOsm/kg (285-295); Potassium 4.4 mmol/L (3.5-5.1); Sodium 142 mmol/L (136-145); Total Bilirubin 0.4 mg/dL (0.15-1.2); Total Protein 7.7 g/dL (6.6-8.7)
--- NOTE | 2023-08-03 14:58 | ECG_ITS ---
[facility] Test Date: 2023-08-03 Pat Name: Nico Saenz Department: Room: Gender: Male Maintenance Trainer: : 1945 Requested By: Herber Sampson Order Number: [id number] [place] MD: Miah Singer M.D. Measurements Intervals [place] Rate: 51 P: 72 MS: 189 QRS: 50 QRSD: 87 T: 65 QT: 448 QTc: 416 Interpretive Statements SINUS BRADYCARDIA SEPTAL MYOCARDIAL INFARCTION , PROBABLY OLD [40+ ms Q WAVE IN V1/V2] Compared to ECG 04/03/2022 11:22:48 Myocardial infarct finding now present Ventricular premature complex(es) no longer present T-wave abnormality no longer present Electronically Signed On 08-03-2023 16:44:44 CDT by Miah Singer M.D. [id number]
[2023-08-03 16:13] LABS: Glucose Point of Care 95 mg/dL (70-110)
[2023-08-03 16:29] VITALS: BP 154/76; PULSE 86; O2SAT 94
[2023-08-03 16:59] LABS: Add Urine Microscopic? NO; Charge for UA Resulting for Rev
[2023-08-03 17:10] LABS: Blood Urine Neg (Negative); Glucose Urine UA 4+ (Normal); Ketones Urine Negative (Negative); Protein Urine Neg (Negative); Specific Gravity, Urine 1.015 (1.005-1.030); Urine Appearance Clear (CLEAR); Urine Color Yellow (Yellow); pH Urine 5 (5-7)
[2023-08-03 17:11] LABS: Bilirubin Urine Neg (Negative); Leukocyte Esterase Urine Negative (Negative); Nitrate Urine Negative (Negative); Urobilinogen Urine Norm (Negative)
[2023-08-03 17:44] VITALS: BP 135/86
--- NOTE | 2023-08-04 08:00 | DCPLANNER ---
faxed scheduling er f/u order
== END 2023-08-03 17:46 | disposition home or self-care (01) ==
PROVIDERS: Physician Assistant; Emergency Provider Family Medicine; PCP Family Medicine
DX: R20.0 Anesthesia of skin (principal); Z79.84 Long term (current) use of oral hypoglycemic drugs; Z87.891 Personal history of nicotine dependence; I11.0 Hypertensive heart disease with heart failure; I50.9 Heart failure, unspecified; E11.9 Type 2 diabetes mellitus without complications; E78.5 Hyperlipidemia, unspecified; Z85.89 Personal history of malignant neoplasm of other organs and systems
CPT/HCPCS: 36415; 36416; 70450; 71045; 80053; 81003; 82962; 85025; 93005; 99285

== ENCOUNTER → 2023-08-15 10:07 | Outpatient (BNVA) | payer OTHER, SELFPAY | PROVIDERS: PCP Family Medicine; Visit Provider Podiatrist Foot & Ankle Surgery | DX: E11.65 Type 2 diabetes mellitus with hyperglycemia (principal); M79.672 Pain in left foot; I73.9 Peripheral vascular disease, unspecified; L60.3 Nail dystrophy; Z79.84 Long term (current) use of oral hypoglycemic drugs | CPT/HCPCS: 11721 ==

== ENCOUNTER → 2023-10-17 09:38 | Outpatient (BNVA) | payer OTHER, SELFPAY | PROVIDERS: PCP Family Medicine; Visit Provider Podiatrist Foot & Ankle Surgery | DX: E11.65 Type 2 diabetes mellitus with hyperglycemia (principal); M79.672 Pain in left foot; I73.9 Peripheral vascular disease, unspecified; L60.3 Nail dystrophy; L30.9 Dermatitis, unspecified; Z79.84 Long term (current) use of oral hypoglycemic drugs | CPT/HCPCS: 11721; 99213 ==

== ENCOUNTER → 2023-11-22 09:19 | Outpatient (BNVA) | payer OTHER, SELFPAY | PROVIDERS: PCP Family Medicine; Visit Provider Orthopaedic Surgery | DX: M25.522 Pain in left elbow (principal) | CPT/HCPCS: 73080; 99203 ==

== ENCOUNTER → 2023-11-28 10:56 | Outpatient (BNVA) | payer OTHER, SELFPAY | PROVIDERS: PCP Family Medicine; Visit Provider Nurse Practitioner Family | DX: L57.0 Actinic keratosis (principal); D18.01 Hemangioma of skin and subcutaneous tissue; L57.8 Other skin changes due to chronic exposure to nonionizing radiation; Z85.828 Personal history of other malignant neoplasm of skin | CPT/HCPCS: 17000; 99213 ==

== ENCOUNTER → 2023-12-19 10:27 | Outpatient (BNVA) | payer OTHER, SELFPAY | PROVIDERS: PCP Family Medicine; Visit Provider Podiatrist Foot & Ankle Surgery | DX: E11.65 Type 2 diabetes mellitus with hyperglycemia (principal); I73.9 Peripheral vascular disease, unspecified; L60.3 Nail dystrophy; L30.9 Dermatitis, unspecified; Z79.84 Long term (current) use of oral hypoglycemic drugs | CPT/HCPCS: 11721 ==

== ENCOUNTER → 2024-01-05 08:21 | Outpatient (BNVA) | payer OTHER, SELFPAY | PROVIDERS: PCP Family Medicine; Visit Provider Orthopaedic Surgery | DX: S52.125A Nondisplaced fracture of head of left radius, initial encounter for closed fracture (principal); Z09 Encounter for follow-up examination after completed treatment for conditions other than malignant neoplasm; X58.XXXA Exposure to other specified factors, initial encounter | CPT/HCPCS: 73080; 99213 ==

== ENCOUNTER → 2024-02-22 10:47 | Outpatient (BNVA) | payer OTHER, SELFPAY | PROVIDERS: PCP Family Medicine; Visit Provider Podiatrist Foot & Ankle Surgery | DX: L60.3 Nail dystrophy (principal); E11.65 Type 2 diabetes mellitus with hyperglycemia; I73.9 Peripheral vascular disease, unspecified; L30.9 Dermatitis, unspecified; Z79.84 Long term (current) use of oral hypoglycemic drugs | CPT/HCPCS: 11721 ==

== ENCOUNTER 2024-03-29 12:16 | Outpatient (CLI) | payer OTHER, SELFPAY ==
--- NOTE | 2024-03-29 12:26 | CTR_ITS ---
PROCEDURE INFORMATION: Exam: CT Chest Without and With Contrast; Diagnostic Exam date and time: 03/29/2024 1:39 PM Age: 79 years old Clinical indication: Condition or disease; Other: Cancer of prostate, skin, neck; Prior surgery; Surgery date: 6+ months; Surgery type: Left side of neck, prostate; Additional info: Cancer HX tonsil, skin, prostate TECHNIQUE: Imaging protocol: Diagnostic computed tomography of the chest without and with contrast. Radiation optimization: All CT scans at this facility use at least one of these dose optimization techniques: automated exposure control; mA and/or kV adjustment per patient size (includes targeted exams where dose is matched to clinical indication); or iterative reconstruction. Contrast material: OMNI 350; Contrast volume: 75 ml; Contrast route: INTRAVENOUS (IV); COMPARISON: CT chest w con* [id number] 06/23/2022 8:38 AM RADIATION DOSE METRICS: Total DLP (mGy-cm): 1499.58 FINDINGS: Lungs: There is no consolidation. Mild subpleural and lower lung predominant fine reticular opacity. Moderate centrilobular emphysema. There is no consolidation. Trachea and bronchi are unremarkable. No suspicious pulmonary nodules. Pleural spaces: There is no pleural effusion or pneumothorax. Heart: Heart size is normal. There is no pericardial effusion. Lymph nodes: There is no mediastinal or hilar lymphadenopathy. Vasculature: There is moderate aortic atherosclerotic disease. Bones/joints: There are diffuse thoracic vertebral syndesmophytes. No acute osseous findings. Soft tissues: The extrathoracic soft tissues are unremarkable. PROCEDURE INFORMATION: Exam: CT Abdomen And Pelvis Without And With Contrast Exam date and time: 03/29/2024 1:39 PM Age: 79 years old Clinical indication: Condition or disease; Other: Cancer of prostate, skin, neck; Prior surgery; Surgery date: 6+ months; Surgery type: Left side of neck, prostate; Additional info: Cancer HX tonsil, skin, prostate TECHNIQUE: Imaging protocol: Computed tomography of the abdomen and pelvis without and with contrast. Radiation optimization: All CT scans at this facility use at least one of these dose optimization techniques: automated exposure control; mA and/or kV adjustment per patient size (includes targeted exams where dose is matched to clinical indication); or iterative reconstruction. Contrast material: OMNI 350; Contrast volume: 75 ml; Contrast route: INTRAVENOUS (IV); COMPARISON: CT abdomen pelvis wo con [id number] 11/12/2020 2:03 PM RADIATION DOSE METRICS: Total DLP (mGy-cm): 1499.58 FINDINGS: Liver: The liver is normal. Gallbladder and biliary ducts: Cholelithiasis is present. There is no sign of cholecystitis. There is no intrahepatic or extrahepatic bile duct dilation. Pancreas: The pancreas is unremarkable. Spleen: The spleen is unremarkable. Adrenal glands: Intermediate density 2.3 x 1.8 cm left adrenal nodule demonstrated low-density on the prior noncontrast CT and is stable in size since 11/12/2020, consistent with a benign lipid rich adenoma. The right adrenal gland is unremarkable. Kidneys and ureters: The kidneys are unremarkable. No hydronephrosis or stones. No ureteral dilation. Stomach and bowel: The stomach is unremarkable. The small bowel is nondilated. Colon is diffusely stool distended above the sigmoid. There is moderate sigmoid colonic diverticulosis without evidence of diverticulitis. No sign of colonic obstruction or inflammation. Appendix: The appendix is normal. Intraperitoneal space: There is no free air or significant intraperitoneal free fluid. Vasculature: There is severe aortic atherosclerotic disease. The portal, splenic and superior mesenteric veins are patent. Lymph nodes: There is no lymphadenopathy in the retroperitoneum, mesentery, pelvis or inguinal regions. Urinary bladder: The urinary bladder is unremarkable. Reproductive: The prostate has been removed. 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 There is mild degenerative disease of both hips. The bony pelvis is intact. Soft tissues: There are small bilateral fat containing inguinal hernias. CT/[facility] [place]w [id number] IMPRESSION: 1. No sign of malignancy in the thorax. 2. Centrilobular emphysema and stable mild reticular opacity in the lower lungs consistent with chronic interstitial lung disease. 3. Incidental findings above. IMPRESSION: 1. No sign of malignancy in the abdomen or pelvis. 2. Incidental findings above.
--- NOTE | 2024-03-29 12:26 | CTR_ITS ---
PROCEDURE INFORMATION: Exam: CT Neck With Contrast Exam date and time: 03/29/2024 1:46 PM Age: 79 years old Clinical indication: Condition or disease; Cancer; Other: Prostate, skin, neck; Prior surgery; Surgery date: 6+ months; Surgery type: Left side of neck, prostate; Additional info: Cancer HX tonsil, skin, prostate TECHNIQUE: Imaging protocol: Computed tomography of the neck with contrast. Radiation optimization: All CT scans at this facility use at least one of these dose optimization techniques: automated exposure control; mA and/or kV adjustment per patient size (includes targeted exams where dose is matched to clinical indication); or iterative reconstruction. Contrast material: OMNI 350; Contrast volume: 75 ml; Contrast route: INTRAVENOUS (IV); COMPARISON: CT neck w con* [id number] 03/25/2020 10:01 AM RADIATION DOSE METRICS: Total DLP (mGy-cm): 198.1 FINDINGS: Salivary glands: Normal. Glands are normal in size. Oral cavity: Unremarkable. Pharynx: Nasopharynx and oropharynx are unremarkable. Asymmetric appearance of the piriform sinuses with relative effacement of the right side. Underlying mucosal lesion cannot be excluded. Recommend correlation with direct visualization. Prevertebral and retropharyngeal spaces: Unremarkable. Larynx: Unremarkable. Epiglottis is normal. Thyroid: No obvious nodules or cysts. Trachea: Visualized upper trachea is unremarkable. Lungs: Emphysematous changes are noted involving the visualized portions of the lungs. Lymph nodes: No cervical lymphadenopathy. Bones/joints: Degenerative changes of the cervical spine. Soft tissues: Redemonstration of the absent left sternocleidomastoid muscle and left internal jugular vein compatible with left neck dissection. CT/CT neck w con* [id number] IMPRESSION: Asymmetric appearance of the piriform sinuses with relative effacement of the right side. Underlying mucosal lesion cannot be excluded. Recommend correlation with direct visualization. Otherwise, no abnormal neck mass lesion or fluid collection is identified. Recommend clinical correlation and follow-up imaging as clinically warranted.
[2024-03-29] MEDS: iohexol 350 mg/mL 500 mL Btl (per mL) PO (12:51)
[2024-03-29] MEDS: iohexol 350 mg/mL 500 mL Btl (per mL) IV ×2 (14:02)
== END 2024-03-29 12:17 | disposition home or self-care (01) ==
LOC: RAD 12:16
PROVIDERS: PCP Family Medicine; Visit Provider Family Medicine
DX: Z85.89 Personal history of malignant neoplasm of other organs and systems (principal); Z85.46 Personal history of malignant neoplasm of prostate; Z85.828 Personal history of other malignant neoplasm of skin; Z98.890 Other specified postprocedural states; R93.89 Abnormal findings on diagnostic imaging of other specified body structures; R91.8 Other nonspecific abnormal finding of lung field; M47.892 Other spondylosis, cervical region
CPT/HCPCS: 70491; 71260; 74178